=== PATIENT | female | born 1955 | race Caucasian/White ===

== ENCOUNTER → 2018-04-22 16:00 | Outpatient (CLI) | payer BC, SELFPAY ==
--- NOTE | 2018-04-22 16:26 | CT_ITS ---
STUDY: CT ABDOMEN AND PELVIS WITH CONTRAST REASON FOR EXAM: Female, 62 years old. Pain. Evaluate for diverticulitis. RADIATION DOSAGE (If Supplied By Facility): CTDIvol = ( 17.4 ) mGy, DLP = ( 1171.98 ) mGycm TECHNIQUE: Transaxial images were obtained from the dome of the diaphragm to the symphysis pubis without oral contrast. 100 ml of Isovue 300 contrast was administered. Sagittal and coronal images were reconstructed. Individualized dose optimization techniques were used for this CT. COMPARISON: None. FINDINGS: The visualized lung bases are clear. The visualized portions of the heart and pericardium are within normal limits. There are no calcified gallstones present. The liver is within normal limits. There are no suspicious hepatic lesions. The spleen is normal in size. The pancreas is within normal limits. The adrenal glands are within normal limits. There are no renal or ureteral stones. There is no hydronephrosis. There is a simple cyst in the left kidney. Normal visualized stomach. There is no bowel obstruction or inflammation. The appendix is visualized and appears normal. The aorta is normal in caliber. There is no abdominal or pelvic free air, free fluid, fluid collection or lymphadenopathy. There are no destructive osseous lesions. CT/Abdomen/Pelvis WITH Contrast IMPRESSION: No acute abdominal or pelvic pathology. Electronically Signed: Pierre Estevez, at 18:43 EST Tel , Service support ,
[2018-04-22 17:36] LABS: Absolute Lymphocyte Count 1.14 X10^3/ul (0.83-4.51); Absolute Neutrophil Count 5.2 X10^3/uL (2.0-7.7); Basophil# 0.04 X10^3/uL; Basophil% 0.6 % (0-1); Eosinophil# 0.12 X10^3/uL; Eosinophils% 1.7 % (0-5); Hematocrit 43.9 % (37-47); Hemoglobin 14.1 g/dl (12.0-15.0); Lymphocyte # 1.14 X10^3/ul (4.0); Lymphocyte % 16.2 % (19-41); Mean Corp Hgb Conc 32.1 g/gl (32-36); Mean Corpuscular Hgb 30.9 pg (27.0-32.0); Mean Corpuscular Volume 96.1 fL (81-99); Mean Platelet Vol. 10.7 fl (6.2-12.0); Monocyte% 7.1 % (0-10); Neutrophil # 5.23 X10^3/uL (2.7-7.7); Neutrophil % 74.1 % (47-70); POSITIVE COUNT NO; POSITIVE DIFFERENTIAL NO; Platelet Count 352 K/mm3 (150-450); RBC Distribution Width CV 12.8 % (11.6-14.6); RBC Distribution Width SD 43.5 fl (35.1-43.9); Red Blood Count 4.57 M/mm3 (4.2-5.4); White Blood Count 7.1 K/mm3 (4.4-11.0)
[2018-04-22 17:37] LABS: POSITIVE MORPHOLOGY NO
[2018-04-22 17:48] LABS: ALB/GLOB Ratio 1.1 RATIO (0.9-2.4); AST(SGOT) 21 U/L (15-37); Alanine Aminotransfer ALT/SGPT 26 U/L (13-56); Albumin, Serum 3.7 g/dL (3.2-5.0); Alkaline Phosphatase 86 U/L (45-117); Anion Gap 4 (5-15); BUN 11 mg/dL (7-18); BUN/Creat Ratio 13.2 RATIO (10-20); Calcium,Total 8.7 mg/dL (8.5-10.1); Chloride 105 mmol/L (98-107); Creatinine, Serum 0.83 mg/dL (0.55-1.02); EST Glomerular Filtration Rate 74 mL/min (>60); Est Glom Filt Rate - Afr Amer 89 mL/min (>60); Globulin 3.5 g/dL (2.2-4.2); Glucose 98 mg/dL (74-106); Potassium 3.5 mmol/L (3.5-5.1); Protein, Total 7.2 g/dL (6.4-8.2); Sodium Level 139 mmol/L (136-145)
== END ==
PROVIDERS: Family Provider Family Medicine; PCP Family Medicine; Referring Provider Family Medicine; Visit Provider Family Medicine
DX: K57.92 Diverticulitis of intestine, part unspecified, without perforation or abscess without bleeding (principal)
CPT/HCPCS: 36415; 74177; 80053; 85025; Q9967

== ENCOUNTER → 2018-05-05 11:06 | Outpatient (CLI) | payer BC, SELFPAY ==
[2018-05-05 12:07] LABS: Absolute Lymphocyte Count 1.02 X10^3/ul (0.83-4.51); Absolute Neutrophil Count 3.6 X10^3/uL (2.0-7.7); Basophil# 0.04 X10^3/uL; Basophil% 0.8 % (0-1); Eosinophil# 0.08 X10^3/uL; Eosinophils% 1.6 % (0-5); Hematocrit 46.4 % (37-47); Hemoglobin 14.6 g/dl (12.0-15.0); Lymphocyte # 1.02 X10^3/ul (4.0); Lymphocyte % 20.3 % (19-41); Mean Corp Hgb Conc 31.5 g/gl (32-36); Mean Corpuscular Volume 95.3 fL (81-99); Mean Platelet Vol. 10.6 fl (6.2-12.0); Monocyte# 0.28 X10^3/uL; Monocyte% 5.6 % (0-10); Neutrophil # 3.59 X10^3/uL (2.7-7.7); Neutrophil % 71.3 % (47-70); Platelet Count 324 K/mm3 (150-450); RBC Distribution Width CV 12.8 % (11.6-14.6); RBC Distribution Width SD 43.9 fl (35.1-43.9); Red Blood Count 4.87 M/mm3 (4.2-5.4)
[2018-05-05 12:08] LABS: POSITIVE COUNT NO; POSITIVE DIFFERENTIAL NO; POSITIVE MORPHOLOGY NO
[2018-05-05 12:44] LABS: Anion Gap 5 (5-15); BUN 16 mg/dL (7-18); BUN/Creat Ratio 19.3 RATIO (10-20); Calcium,Total 8.9 mg/dL (8.5-10.1); Chloride 107 mmol/L (98-107); Creatinine, Serum 0.83 mg/dL (0.55-1.02); EST Glomerular Filtration Rate 74 mL/min (>60); Est Glom Filt Rate - Afr Amer 89 mL/min (>60); Glucose 95 mg/dL (74-106); Potassium 4.1 mmol/L (3.5-5.1); Sodium Level 141 mmol/L (136-145); Thyroid Stim Hormone (TSH) 4.52 uIU/mL (0.358-3.74)
== END ==
PROVIDERS: Family Provider Family Medicine; PCP Family Medicine; Referring Provider Family Medicine; Visit Provider Family Medicine
DX: I10 Essential (primary) hypertension (principal); M19.90 Unspecified osteoarthritis, unspecified site; E07.9 Disorder of thyroid, unspecified
CPT/HCPCS: 36415; 80048; 84443; 85025

== ENCOUNTER 2019-03-22 15:00 | Outpatient (RCR) | payer BC, SELFPAY ==
--- NOTE | 2019-02-20 14:43 | HP.PTEVAL_ITS ---
Patient's Visit Information JACLYN PEREA is a 63 year old F referred to Physical Therapy by Navin Madrigal MD with a diagnosis of Left Shoulder Tendonitis. Date of Evaluation: 02/20/19 Physical Therapist: Eun Martin DPT - Visit Plan Frequency: 2x /Week Duration: 4 Weeks Plan: Focus on posture and scapular s/s. HEP given 02/20: scapular retractions, bilateral ER with OTB, corner stretch - Subjective Findings: Left shoulder pain- was doing a lot of heavy in July- flared it up and can't get rid of it. If she does a lot of work or carries a lot of things it hurts and hard to sleep at night. Worst: 4-5/10 in the last week Best:03/27. Agg: sleep on that side, lifting Eases: pain meds when she can't sleep at night (Meloxicam). Pain is located in the shoulder itself and radiates to the wrist. Describes the pain as throbbing. 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 No Neck pain- always has tight shoulder and carries her stress there. Right hand dominate. Worst: does not work outside of her home. Sleep: disturbed- hard to get comfortable and will wake her up. No BASSETT, blurred vision or dizziness. Feels the shoulder is getting better when she doesn't use it then it flares right back up. No x-rays or MRI of shoulder- no injection. PMHx: none Meds: does have a water pill but isn't taking it due to side effects - Objective Posture: FH, RS, increased kyphosis- challenged to correct with verbal and tactile cues- does not maintain. Gait: no deviation- good arm swing and trunk rotation. Palpatoin: tender along upper trap, medial border of the scapula, infra and supraspinatus along the scapula, bicpital groove- significant tightnesss in upper trap, levator and SCM. ROM: Cervical: WNL, Shoulder: WNL with pain at end range flexion. Elbow/Wrist/Finger Dexterity: WNL. Strength: Scap: poor-reports pulling sensation along pec with scapular retractions, Shoulder: Abd/Flexion: 4/5 with pain, IR/ER at neutral: 4+/5 Extn: 4+/5 Elbow: 4+/5, Wrist: 5/5, ,Commercial Or Institutional Cleaner: Left: 45, 50, 50 Right: 55,60,55. Special Test: Empty Can: negative, Impingment both Neer and Moya: positive - Goals Goal 1:: Patient will be I with HEP and progression Goal Time Frame: 4-6 Weeks Goal 2:: Patient will maintain proper posture t/o tx session to demo increased core s/s. Goal Time Frame: 4-6 Weeks Goal 3:: Patient will lift 5 cones overhead for 2 min with 0/10 pain Goal Time Frame: 4-6 Weeks Goal 4:: Patient will report no pain with ADL's. Goal Time Frame: 4-6 Weeks - Rehabilitation Potential Physical Therapy Diagnosis: Patient presents with hypomobility- she has decreased scap s/s and muscular endurance leading to poor posutre and increased pain with ADL's. Rehabilitation Potential: Good - Anticipated Interventions Patient/Client Instruction: Educate patient on: Benefits of Fitness Program Therapeutic Exercise to Include: Strength training, Endurance training, Body mechanics, Postural training, Scapular Strength/Stabilization For the Purpose of:: To improve muscle performance and motor function TENS: Yes Cryotherapy (ice pack, ice massage): Yes Thermo therapy (hot pack): Yes Ultrasound (thermal/non thermal): Yes Thank you for the opportunity to evaluate your patient. For Medicare and Medicare HMO plans, please review the plan of care and approve it. It will need to be FAXED BACK to us at [phone] for Medicare purposes. For Medicare only, by signing this I certify the plan of care. Please let me know if there are questions or concerns regarding this plan of care. Physician Signature: Date:
--- NOTE | 2019-03-22 15:25 | HP.PTDCSUM ---
HP - PT D/C Summary It has been my pleasure to treat JACLYN PEREA under orders from Navin Madrigal MD, for the diagnosis of Left Shoulder Tendonitis for a total of 7 visit(s). Discharge Date: Please see the following information for a summary of their discharge status. - Subjective Subjective: Patient reports that she is better - only time she has pain is when she rolling over onto it. - Pain Left Shoulder Pain Intensity (Out of 10): 0 - Overall Improvement % Improvement: 95 - Objective Objective/Function: Posture: good in sitting without a back rest Gait: no deviation- good arm swing and trunk rotation. Palpatoin: not tender to touch ROM: Cervical: WNL, Shoulder: WNL no pain at end range. Elbow/Wrist/Finger Dexterity: WNL. Strength: Scap: fair plus Shoulder: Abd/Flexion: 4+/5, IR/ER at neutral: 4+/5 Extn: 4+/5 Elbow: 4+/5, Wrist: 5/5, - Goals Goal 1:: Patient will be I with HEP and progression Goal Progress: Goal Met Goal 2:: Patient will maintain proper posture t/o tx session to demo increased core s/s. Goal Progress: Goal Met Goal 3:: Patient will lift 5 cones overhead for 2 min with 0/10 pain Goal Progress: Goal Met Goal 4:: Patient will report no pain with ADL's. Goal Progress: Goal Met - Plan Plan: Discharge to I HEP - D/C Information If there are questions or concerns regarding this patient's physical therapy, please feel free to call me at [phone]. Thank you for the referral of this patient. Sincerely, SHIRA SavageT
== END 2019-03-22 19:00 | disposition home or self-care (01) ==
LOC: PT 15:00
PROVIDERS: Family Provider Family Medicine; PCP Family Medicine; Referring Provider Family Medicine; Visit Provider Family Medicine
DX: M77.9 Enthesopathy, unspecified (principal)
CPT/HCPCS: 97110; 97161; 97164

== ENCOUNTER → 2019-07-18 10:02 | Outpatient (CLI) | payer BC, SELFPAY ==
[2019-07-18 13:18] LABS: AST(SGOT) 23 U/L (15-37); Alanine Aminotransfer ALT/SGPT 33 U/L (13-56); Albumin, Serum 3.4 g/dL (3.2-5.0); Alkaline Phosphatase 77 U/L (45-117); Anion Gap 7 (5-15); BUN 17 mg/dL (7-18); Chloride 106 mmol/L (98-107); Cholesterol 201 mg/dL (200); EST Glomerular Filtration Rate 67 mL/min (>60); Est Glom Filt Rate - Afr Amer 81 mL/min (>60); Globulin 3.4 g/dL (2.2-4.2); Glucose 98 mg/dL (74-106); High Density Lipoprotein 53 mg/dL; Potassium 3.8 mmol/L (3.5-5.1); Protein, Total 6.8 g/dL (6.4-8.2); Sodium Level 141 mmol/L (136-145); Thyroid Stim Hormone (TSH) 4.44 uIU/mL (0.358-3.74); Triglycerides 151 mg/dL; Very Low Density Lipoprotein 30 mg/dL (5-40)
== END ==
PROVIDERS: PCP Family Medicine; Referring Provider Family Medicine; Visit Provider Family Medicine
DX: I10 Essential (primary) hypertension (principal); E07.9 Disorder of thyroid, unspecified
CPT/HCPCS: 36415; 80053; 80061; 84443

== ENCOUNTER → 2019-12-04 10:11 | Outpatient (CLI) | payer MEDICARE, SELFPAY ==
[2019-12-04 13:23] LABS: Cholesterol 218 mg/dL (200); High Density Lipoprotein 59 mg/dL; Thyroid Stim Hormone (TSH) 1.84 uIU/mL (0.358-3.74); Triglycerides 182 mg/dL; Very Low Density Lipoprotein 36 mg/dL (5-40)
== END ==
PROVIDERS: PCP Family Medicine; Referring Provider Family Medicine; Visit Provider Family Medicine
DX: I10 Essential (primary) hypertension (principal); E03.9 Hypothyroidism, unspecified
CPT/HCPCS: 80061; 84443

== ENCOUNTER → 2020-06-20 10:36 | Outpatient (CLI) | payer MEDICARE, SELFPAY ==
[2020-06-20 12:49] LABS: Thyroid Stim Hormone (TSH) 5.27 uIU/mL (0.358-3.74)
== END ==
PROVIDERS: PCP Family Medicine; Referring Provider Family Medicine; Visit Provider Family Medicine
DX: L65.9 Nonscarring hair loss, unspecified (principal)
CPT/HCPCS: 36415; 84443

== ENCOUNTER → 2020-07-23 14:44 | Outpatient (CLI) | payer MEDICARE, SELFPAY ==
--- NOTE | 2020-07-23 14:46 | RAD_ITS ---
STUDY: X-RAY - LEFT FOOT CLINICAL: Female, 64 years old. PAIN TECHNIQUE: 3 view(s) of the foot. COMPARISON: None. FINDINGS: There is a plantar calcaneal spur. Normal visualized subtalar, talonavicular, calcaneocuboid, tarsal and tarsometatarsal articulations. Normal metatarsi. Normal metatarsophalangeal joint of the great toe. Normal tibial and fibular sesamoid bones. Normal interphalangeal joint of the great toe. Normal phalanges of the great toe. Normal second through fifth metatarsophalangeal joints. Normal interphalangeal joints and phalanges of the lesser toes. The soft tissue structures are unremarkable. RAD/Foot min 3 Views IMPRESSION: Plantar spur. Electronically Signed: Noe Ward MD at 15:24 EDT , Service support ,
== END ==
PROVIDERS: PCP Family Medicine; Referring Provider Family Medicine; Visit Provider Family Medicine
DX: M79.672 Pain in left foot (principal)
CPT/HCPCS: 73630

== ENCOUNTER → 2020-09-26 13:36 | Outpatient (CLI) | payer MEDICARE, SELFPAY ==
[2020-09-26 15:09] LABS: Absolute Lymphocyte Count 1.12 X10^3/uL (0.83-4.51); Absolute Neutrophil Count 3.9 X10^3/uL (2.0-7.7); Basophil# 0.05 X10^3/uL; Basophil% 0.9 % (0-1); Eosinophils% 1.8 % (0-5); Hemoglobin 13.6 g/dL (12.0-15.0); Lymphocyte # 1.12 X10^3/ul (0.83-4.51); Lymphocyte % 20.3 % (19-41); Mean Corp Hgb Conc 32.4 g/dL (32-36); Mean Corpuscular Hgb 30.6 pg (27.0-32.0); Mean Corpuscular Volume 94.4 fL (81-99); Mean Platelet Vol. 10.3 fl (6.2-12.0); Monocyte# 0.35 X10^3/uL; Monocyte% 6.3 % (0-10); NRBC Flagged by Analyzer 0 % (0-5); Neutrophil % 70.5 % (47-70); Platelet Count 314 K/mm3 (150-450); RBC Distribution Width CV 12.5 % (11.6-14.6); RBC Distribution Width SD 43.5 fl (35.1-43.9); Red Blood Count 4.45 M/mm3 (4.2-5.4); White Blood Count 5.5 K/mm3 (4.4-11.0)
[2020-09-26 15:38] LABS: ALB/GLOB Ratio 1.1 RATIO (0.9-2.4); AST(SGOT) 22 U/L (15-37); Alanine Aminotransfer ALT/SGPT 29 U/L (13-56); Albumin, Serum 3.7 g/dL (3.2-5.0); Alkaline Phosphatase 79 U/L (45-117); Anion Gap 8 (5-15); BUN 19 mg/dL (7-18); BUN/Creat Ratio 21.6 RATIO (10-20); Chloride 103 mmol/L (98-107); Cholesterol 228 mg/dL (200); Creatinine, Serum 0.88 mg/dL (0.55-1.02); EST Glomerular Filtration Rate 68 mL/min (>60); Est Glom Filt Rate - Afr Amer 83 mL/min (>60); Globulin 3.3 g/dL (2.2-4.2); Glucose 94 mg/dL (74-106); High Density Lipoprotein 56 mg/dL; Sodium Level 139 mmol/L (136-145); Thyroid Stim Hormone (TSH) 1.35 uIU/mL (0.358-3.74); Triglycerides 151 mg/dL; Very Low Density Lipoprotein 30 mg/dL (5-40)
== END ==
PROVIDERS: PCP Family Medicine; Referring Provider Family Medicine; Visit Provider Family Medicine
DX: I10 Essential (primary) hypertension (principal); E03.9 Hypothyroidism, unspecified
CPT/HCPCS: 36415; 80053; 80061; 84443; 85025

== ENCOUNTER → 2020-10-16 17:17 | Outpatient (CLI) | payer MEDICARE, SELFPAY | PROVIDERS: PCP Family Medicine; Visit Provider Family Medicine | DX: B34.9 Viral infection, unspecified (principal) | CPT/HCPCS: 87635; U0005; U0003 ==

== ENCOUNTER 2021-02-20 15:50 | Outpatient (CLI) | payer MEDICARE, SELFPAY | END 2021-02-20 23:59 | disposition short-term general hospital (02) | PROVIDERS: PCP Nurse Practitioner Family; Visit Provider Nurse Practitioner Family | DX: Z11.52 Encounter for screening for COVID-19 (principal) | CPT/HCPCS: 87635; U0003; U0005 ==

== ENCOUNTER 2021-04-04 14:09 | Outpatient (CLI) | payer MEDICARE, SELFPAY ==
[2021-04-04 17:41] LABS: Absolute Lymphocyte Count 0.89 X10^3/uL (0.83-4.51); Absolute Neutrophil Count 4.9 X10^3/uL (2.0-7.7); Basophil# 0.04 X10^3/uL; Basophil% 0.7 % (0-1); Eosinophil# 0.04 X10^3/uL; Eosinophils% 0.7 % (0-5); Hematocrit 43.9 % (37-47); Hemoglobin 14.4 g/dL (12.0-15.0); Lymphocyte # 0.89 X10^3/ul (0.83-4.51); Lymphocyte % 14.5 % (19-41); Mean Corp Hgb Conc 32.8 g/dL (32-36); Mean Corpuscular Hgb 30.9 pg (27.0-32.0); Mean Corpuscular Volume 94.2 fL (81-99); Mean Platelet Vol. 10.2 fl (6.2-12.0); Monocyte# 0.26 X10^3/uL; Monocyte% 4.2 % (0-10); NRBC Flagged by Analyzer 0 % (0-5); Neutrophil # 4.87 X10^3/uL (2.7-7.7); Neutrophil % 79.6 % (47-70); Platelet Count 323 K/mm3 (150-450); RBC Distribution Width CV 12.4 % (11.6-14.6); Red Blood Count 4.66 M/mm3 (4.2-5.4); White Blood Count 6.1 K/mm3 (4.4-11.0)
[2021-04-04 17:59] LABS: ALB/GLOB Ratio 0.9 RATIO (0.9-2.4); AST(SGOT) 23 U/L (15-37); Alanine Aminotransfer ALT/SGPT 35 U/L (13-56); Albumin, Serum 3.5 g/dL (3.2-5.0); Alkaline Phosphatase 75 U/L (45-117); Anion Gap 7 (5-15); BUN 14 mg/dL (7-18); BUN/Creat Ratio 16.5 RATIO (10-20); Calcium,Total 9.1 mg/dL (8.5-10.1); Chloride 108 mmol/L (98-107); Cholesterol 219 mg/dL (200); Creatinine, Serum 0.85 mg/dL (0.55-1.02); EST Glomerular Filtration Rate 71 mL/min (>60); Est Glom Filt Rate - Afr Amer 86 mL/min (>60); Globulin 3.8 g/dL (2.2-4.2); Glucose 101 mg/dL (74-106); High Density Lipoprotein 57 mg/dL; Potassium 3.9 mmol/L (3.5-5.1); Protein, Total 7.3 g/dL (6.4-8.2); Sodium Level 141 mmol/L (136-145); Thyroid Stim Hormone (TSH) 2.52 uIU/mL (0.358-3.74); Triglycerides 175 mg/dL; Very Low Density Lipoprotein 35 mg/dL (5-40)
== END 2021-04-04 23:59 | disposition home or self-care (01) ==
LOC: MTLAB 14:10
PROVIDERS: Registered Nurse; PCP Nurse Practitioner Family; Referring Provider Family Medicine; Visit Provider Family Medicine
DX: I10 Essential (primary) hypertension (principal); E03.9 Hypothyroidism, unspecified; E78.5 Hyperlipidemia, unspecified
CPT/HCPCS: 36415; 80053; 80061; 84443; 85025

== ENCOUNTER 2021-04-05 23:23 | Emergency (ER) | payer MEDICARE, SELFPAY ==
[2021-04-05 23:24] VITALS: BP 160/80; PULSE 87; RESP 18; TEMP 36; O2SAT 97; BMI 34.7
[2021-04-05 23:44] VITALS: BP 139/78; PULSE 78; O2SAT 93
[2021-04-05 23:47] VITALS: BP 148/80; PULSE 77; RESP 16; O2SAT 94
[2021-04-06] VITALS: BP 152/92; PULSE 69; RESP 14; O2SAT 96
[2021-04-06 00:18] VITALS: BP 131/77; PULSE 72
--- NOTE | 2021-04-06 00:34 | EX.ED.DYSGE1 ---
HPI History of Present Illness Chief Complaint: Hypertension Detail of Chief Complaint: Elevated blood pressure 170/106 Informant: patient and spouse/S.O. Onset/Context/Timing Onset: Today (Several readings) Context: Sudden Onset Timing: Intermittent (Past week) Quality: Cardiovascular Current Severity: Mild Maximum Severity: Moderate Worsened by: Possibly anxiety Relieved by: New medication was started Associated Symptoms Associated Symptoms: Patient complained of cold intolerance. Her TSH is being assessed to deter Narrative Narrative: Patient is a 65-year-old woman who presents because of elevated blood pressure. Denies headache, visual, ocular or auditory symptoms. She denies trouble with speech or swallowing. She denies cardiac respiratory symptoms. She denies GI symptoms. She denies paresthesia, anesthesia or motor weakness. Denies problems with balance or coordination. She denies history of stroke. Prior similar symptoms: Yes Recent Illness/Hospitalization: Yes (Elevated blood pressure and hypothyroidism) [facility] Medical History Hypothyroid Home Medications amlodipine 5 mg PO DAILY 04/05/21 [History Last Taken Unknown] losartan 50 mg PO DAILY 04/05/21 [History Last Taken Unknown] lorazepam [Ativan] 0.5 mg PO TID PRN #10 tab 04/06/21 [Rx Last Taken Unknown] Allergy/AdvReac Type Severity Reaction Status Date / Time No Known Allergies Allergy Verified 04/05/21 23:49 Social History (Updated 04/06/21 @ 00:[address] Norm Kraus MD) household members: spouse Smoking Status: Never smoker substance use type: does not use ROS ROS ED Constitutional Constitutional ED: Denies chills, fever(s), subjective, sweats or weight loss Eyes Eyes: Denies blurry vision, change in vision or diplopia ENT ENT ED: Reports other Details: No ringing in her ears or decreased hearing ; Denies ear pain, rhinorrhea or sore throat Cardiovascular Cardiovascular: Denies chest pain, orthopnea, palpitations, paroxysmal nocturnal dyspnea or racing heartbeat Respiratory/Chest Respiratory/Chest: Denies cough, dyspnea, dyspnea on exertion, orthopnea or paroxysmal nocturnal dyspnea Gastrointestinal Gastrointestinal: Denies abdominal pain, nausea or vomiting Musculoskeletal Musculoskeletal: Denies arthralgias, back pain, myalgias or neck pain Integumentary Denies rash Neurologic Neurologic: Denies headache(s), paresthesias or weakness Psychiatric Psychiatric: Reports anxiety Endocrine Endocrinology: Denies polydipsia, polyphagia or polyuria EXAM Physical Exam Const Vital Signs: 04/05/21 23:24 04/05/21 23:44 04/05/21 23:47 Temperature 96.8 F L Temperature Source Temporal Pulse Rate 87 78 77 Respiratory Rate 18 16 Respiratory Effort Respiratory Pattern Blood Pressure 160/80 H 139/78 H 148/80 H Blood Pressure Mean 106 98 102 Pulse Ox 97 93 94 Oxygen Delivery Method Room Air Room Air Room Air 04/05/21 23:51 04/06/21 00:00 04/06/21 00:18 Temperature Temperature Source Pulse Rate 69 72 Respiratory Rate 14 Respiratory Effort Normal Respiratory Pattern Normal Blood Pressure 152/92 H 131/77 H Blood Pressure Mean 112 95 Pulse Ox 96 Oxygen Delivery Method Room Air Positive well nourished, well developed and obese General Appearance ED: well developed and NAD; Negative for cyanotic, diaphoretic or pallor Nutritional Appearance: obese HEENT Reports moist mucous membranes HEENT Narrative: Nares patent. TMs normal. Negative for trauma or tenderness Neck no lymphadenopathy, supple and no JVD General: other There is no carotid bruit right or left side. Resp normal respiratory effort and clear to auscultation bilaterally Cardio regular rate, regular rhythm, S1 normal heart sound, S2 normal heart sound and no murmurs GI normal to inspection, nondistended, normoactive bowel sounds, non-tender and non-distended Auscultation: normoactive bowel sounds Palpation: soft Back/Spine no CVA tenderness Cervical Spine: Negative for cervical spine tenderness Thoracic Spine / Upper Back: Negative for thoracic spinal tenderness or paraspinal muscle tenderness Extremity normal to inspection Extremity Narrative: Radial and DP pulse palpable and symmetric. General Extremety ED: Negative for edema General Extremity: Negative for edema Neuro oriented x3, CN's II-XII intact bilaterally and no sensory deficits noted Sensorium / Orientation: alert Motor Exam: strength 5/5 throughout Psych mental status grossly normal Mood & Affect: anxious Skin no rashes or lesions noted and no wounds General Skin Exam: Negative for jaundice or pallor MDM MDM MDM Narrative Medical decision making narrative: Patient has elevated blood pressure but is asymptomatic. Plan is repeat blood pressure every 15 minutes for an hour. Most recent blood pressure is 131/77 without initiation of therapy. Patient asked if she could be given something for anxiety. She was prescribed Ativan. Discharge Plan Triage Chief Complaint: Hypertension ED Provider: Norm Kraus Dx/Rx/DC Orders Clinical Impression: HTN (hypertension), Anxiety Instructions: Understanding Anxiety Disorders, ED Hypertension, Established Prescriptions: New lorazepam [Ativan] 0.5 mg tablet 0.5 mg PO TID PRN (Reason: anxiety) Qty: 10 RF: 0 No Action losartan 50 mg tablet 50 mg PO DAILY RF: 0 amlodipine 5 mg tablet 5 mg PO DAILY RF: 0 Primary Care Provider: Shan Nguyen Referrals: Shan Nguyen [Primary Care Provider] - 1-2 Weeks Disposition Disposition: Home, Self Care
[2021-04-06 00:41] VITALS: BP 136/69; PULSE 63; RESP 16; O2SAT 96
[2021-04-06 00:48] VITALS: BP 136/69; PULSE 63; RESP 18; O2SAT 96
== END 2021-04-06 00:52 | disposition home or self-care (01) ==
LOC: ED 04-06 00:45
PROVIDERS: Emergency Provider Emergency Medicine; PCP Family Medicine; Visit Provider Emergency Medicine
DX: I10 Essential (primary) hypertension (principal); F41.9 Anxiety disorder, unspecified; E66.9 Obesity, unspecified; Z79.899 Other long term (current) drug therapy
CPT/HCPCS: 99283

== ENCOUNTER 2021-04-10 13:13 | Outpatient (CLI) | payer MEDICARE, SELFPAY ==
--- NOTE | 2021-04-10 13:15 | BI_ITS ---
MAMMOGRAPHY - BILATERAL SCREENING REASON FOR EXAM: Female, 65 years old. Routine annual screening examination. PERTINENT HISTORY: Sister with breast cancer. Grandmother with breast cancer. Remote right stereotactic breast biopsy. TECHNIQUE: Digital bilateral breast christo (3D mammographic acquisition) in the CC and MLO projections. 2-D mediolateral oblique (MLO) and craniocaudad (CC) views of both breasts were obtained. CAD: Full Field Digital Mammography with Computer Added Detection was performed. COMPARISON: Comparison is made with prior examination dated 01/25/2017 and 12/25/2013. FINDINGS: Breast Composition: The breasts are heterogeneously dense, which may obscure small masses. There are no dominant masses or suspicious calcifications. No other significant abnormalities are identified. There has been no significant change since the prior study. BI/SCRN MAMM (CAD)W/CHRISTO BILAT IMPRESSION: Stable bilateral screening mammogram. Yearly follow-up mammogram recommended. (A) ASSESSMENT CATEGORY: BIRADS Category 1: Negative. A letter regarding these results will be sent to the patient by the facility within 30 days. Approximately 10% of breast cancers are not detected by mammography. A normal mammogram should not delay biopsy of a clinically suspicious abnormality. [id number] Electronically Signed: Noe Ward MD at 14:39 EST ,
--- NOTE | 2021-04-10 13:16 | BD_ITS ---
STUDY: DUAL ENERGY X-RAY ABSORPTIOMETRY / DXA REASON FOR EXAM: Female, 65 years old. 733.00OsteoporosisBONE DENSITY REASON FOR EXAM TECHNIQUE: Bone Mineral Density (BMD) measurements of lumbar spine and bilateral hips were obtained. COMPARISON: None. FINDINGS: Lumbar Spine (L1-L4): g/cm2 (0.988) / T-score (-0.5) / Z-score (1.3) Findings are suggestive of normal bone density with a low fracture risk. Left Femur Total: g/cm2 (0.945) / T-score (0.0) / Z-score (1.3) Left Femoral Neck: g/cm2 (0.753) / T-score (-0.9) / Z-score (0.7) Right Femur Total: g/cm2 (0.956) / T-score (0.1) / Z-score (1.4) Right Femoral Neck: g/cm2 (0.730) / T-score (-1.1) / Z-score (0.5) BD/Dexa Bone Density Study IMPRESSION: The patient is considered osteopenic as outlined below according to World Mack Organization (WHO) criteria with a low fracture risk. Reference Information: The T-score is the number of standard deviations above or below the standard which is normal for young adults at their peak bone mineral density. The World Health Organization (WHO) interprets the T-scores as follows: Above -1 Normal bone density Between -1 and -2.5 Osteopenia Equal to / or below -2.5 Osteoporosis As a practical clinical guideline, osteopenia may be graded as follows: Mild -1 through -1.5 Moderate -1.6 through -2.0 Severe -2.1 through -2.4 The Z-score is the number of standard deviations above or below age-matched controls. A Z-score of less than -1.5 would be considered abnormal. References: 1. NIH Osteoporosis and Related Bone Diseases www osteo.org 2. International Society for Clinical Densitometry www iscd.org 3. National Osteoporosis Foundation www nof.org Electronically Signed: Noe Ward MD at 8:24 EST ,
== END 2021-04-10 23:59 | disposition home or self-care (01) ==
PROVIDERS: PCP Family Medicine; Visit Provider Registered Nurse
DX: Z78.0 Asymptomatic menopausal state (principal); Z12.31 Encounter for screening mammogram for malignant neoplasm of breast
CPT/HCPCS: 77063; 77067; 77080

== ENCOUNTER → 2022-04-23 | Outpatient (CLI) | payer MEDICARE, OTHER, SELFPAY ==
[2022-04-23 12:42] LABS: AST(SGOT) 15 U/L (15-37); Albumin, Serum 3.5 g/dL (3.2-5.0); BUN 20 mg/dL (7-18); BUN/Creat Ratio 22.1 RATIO (10-20); Calcium,Total 9.3 mg/dL (8.5-10.1); EST Glomerular Filtration Rate 66 mL/min (>60); Est Glom Filt Rate - Afr Amer 80 mL/min (>60); Globulin 3.5 g/dL (2.2-4.2); Glucose 103 mg/dL (74-106)
[2022-04-23 12:43] LABS: Alanine Aminotransfer ALT/SGPT 21 U/L (13-56); Alkaline Phosphatase 75 U/L (45-117); Anion Gap 4 (5-15); Chloride 107 mmol/L (98-107); Cholesterol 229 mg/dL (200); High Density Lipoprotein 52 mg/dL; Potassium 3.8 mmol/L (3.5-5.1); Sodium Level 140 mmol/L (136-145); Triglycerides 168 mg/dL; Very Low Density Lipoprotein 34 mg/dL (5-40)
== END | disposition home or self-care (01) ==
LOC: MTLAB 09:58
PROVIDERS: PCP Family Medicine; Referring Provider Family Medicine; Visit Provider Family Medicine
DX: I10 Essential (primary) hypertension (principal); E78.5 Hyperlipidemia, unspecified
CPT/HCPCS: 36415; 80053; 80061

== ENCOUNTER → 2023-03-08 | Outpatient (CLI) | payer MEDICARE, OTHER, SELFPAY ==
--- NOTE | 2023-03-08 14:06 | CT_ITS ---
STUDY: CT ABDOMEN AND PELVIS WITH CONTRAST REASON FOR EXAM: Female, 67 years old. Right lower quadrant pain. RADIATION DOSAGE (If Supplied By Facility): CTDIvol = ( 17.37 ) mGy, DLP = ( 1096.77 ) mGycm TECHNIQUE: Transaxial images were obtained through the abdomen and pelvis with oral contrast. 100 ml of Isovue-370 contrast was administered. Sagittal and coronal images were reconstructed. Individualized dose optimization techniques were used for this CT. COMPARISON: Prior study dated: 04/22/18 FINDINGS: LOWER THORAX: The visualized lung bases are clear. The visualized portions of the heart and pericardium are within normal limits. GALLBLADDER / BILE DUCTS: There are no calcified gallstones present. There is no intrahepatic biliary duct dilatation. The common bile duct is normal in caliber. There are no calcified ductal stones. LIVER: The liver is within normal limits. There are no suspicious hepatic lesions. SPLEEN: The spleen is normal in size. PANCREAS: The pancreas is within normal limits. ADRENAL GLANDS: The adrenal glands are within normal limits. KIDNEYS / BLADDER: There are no renal or ureteral stones. There is no hydronephrosis. There are no focal renal lesions. The urinary bladder is partially distended and appears grossly unremarkable. STOMACH / BOWEL: Normal visualized stomach. There is no bowel obstruction. There are inflammatory changes in the pelvis adjacent to diverticula in the sigmoid colon. This is consistent with acute sigmoid diverticulitis. The appendix is visualized and appears normal. PERITONEUM/RETROPERITONEUM: There is no abdominal or pelvic free air, free fluid or fluid collection. There is no abnormal soft tissue mass identified. There is no abdominal or pelvic lymphadenopathy. VESSELS: There are atherosclerotic calcifications noted in the aorta. The aorta is normal in caliber. The IVC is unremarkable. BONES: There are no destructive osseous lesions. SOFT TISSUES: The visualized soft tissues are within normal limits. CT/Abdomen/Pelvis WITH Contrast IMPRESSION: Acute sigmoid diverticulitis. No free air, free fluid or fluid collection. Electronically Signed: Pierre Estevez MD at 16:38 EST ,
--- OUTSIDE RECORDS SUMMARY | 2023-03-08 14:32 | XMS RPT_ITS | CCD ---
Author Name Unknown Address [facility] [place] [address] Organization [facility] Care Team Providers Care Mrb Engineer Name Role Phone FERMIN WOODS Admitting Unavailable FERMIN WOODS Attending Unavailable FERMIN WOODS Primary Care Unavailable FERMIN WOODS Admitting Unavailable FERMIN WOODS Attending Unavailable FERMIN WOODS Primary Care Unavailable SHAN BATISTA Consulting Unavailable PROVIDER, UNKNOWN Consulting Unavailable PROVIDER, UNKNOWN Consulting Unavailable Allergies Allergy Classification Reported Allergen(s) Allergy Type Date of Onset Reaction(s) Facility (1 source) Citalopram Drug Allergy [facility] Repository (1 source) Egg Drug allergy (disorder) [facility] Rep[facility] (1 source) Lisinopril Drug Allergy [facility] Rep[facility] Problems Problem Classification Problem Date Documented Da te Episodic/Chronic Other skin disorders (3 sources) Rash and other nonspecific skin eruption; Translations: [Rash and other nonspecific skin eruption] Onset: 04-21-2020 Episodic Results Test Name Value Interpretation Reference Range Facil ity Encounters Encounter Date Encounter Type Care Provider Facility Start: 04-03-2021 End: 04-03-2021 Emergency department patient visit FERMIN Aiken [facility] Start: 04-21-2020 End: 04-21-2020 Emergency department patient visit FERMIN Aiken [facility] Procedures Date Procedure Procedure Detail Performing Clinician Start: 04-03-2021 Urinalysis FERMIN LAMBERTS Payers Date Payer Category Payer Unknown [id number] 1955 Unknown [id number] Medicare [id number] Medicare [id number] Summary Purpose Family History No Family History Records Found Advance Directives No Advanced Directives Records Found Additional Source Comments INFORMATION SOURCE (unrecogn ized section and content) FOR RECORDS PERTAINING TO PATIENTS WHO ARE OR HAVE BEEN ENROLLED IN A CHEMICAL DEPENDENCY/SUBSTANCEABUSE PROGRAM, SOME INFORMATION MAY BE OMITTED. This clinical summary was aggregated from multiple sources. Caution should be exercised in using it in the provision of clinical care. This summary normalizes information from multiple sources, and as a consequence, information in this document may materially change the coding, format and clinical context of patient data. In addition, data may be omitted in some cases. CLINICAL DECISIONS SHOULD BE BASED ON THE PRIMARY CLINICAL RECORDS. [facility]. provides no warranty or guarantee of the accuracy or completeness of information in this document.
[2023-03-08 16:33] LABS: CREATININE FINGERSTICK < 1.0 mg/dL (0.55-1.02)
== END | disposition home or self-care (01) ==
LOC: CT 14:04
PROVIDERS: PCP Family Medicine; Referring Provider Nurse Practitioner Family; Visit Provider Nurse Practitioner Family
DX: R10.31 Right lower quadrant pain (principal)
CPT/HCPCS: 74177; Q9967

== ENCOUNTER 2023-09-30 16:03 | Outpatient (CLI) | payer MEDICARE, OTHER, SELFPAY ==
[2023-09-30 18:04] LABS: Absolute Lymphocyte Count 1.16 X10^3/uL (0.83-4.51); Absolute Neutrophil Count 5.1 X10^3/uL (2.0-7.7); Basophil# 0.05 X10^3/uL; Basophil% 0.7 % (0-1); Eosinophil# 0.09 X10^3/uL; Eosinophils% 1.3 % (0-5); Hematocrit 44.1 % (37-47); Hemoglobin 13.9 g/dL (12.0-15.0); Lymphocyte # 1.16 X10^3/ul (0.83-4.51); Lymphocyte % 16.8 % (19-41); Mean Corp Hgb Conc 31.5 g/dL (32-36); Mean Platelet Vol. 10.2 fl (6.2-12.0); Monocyte# 0.49 X10^3/uL; Monocyte% 7.1 % (0-10); NRBC Flagged by Analyzer 0 % (0-5); Neutrophil # 5.09 X10^3/uL (2.7-7.7); Neutrophil % 73.7 % (47-70); Platelet Count 342 K/mm3 (150-450); RBC Distribution Width CV 12.3 % (11.6-14.6); RBC Distribution Width SD 42.8 fl (35.1-43.9); Red Blood Count 4.64 M/mm3 (4.2-5.4); White Blood Count 6.9 K/mm3 (4.4-11.0)
[2023-09-30 18:21] LABS: Vitamin D,25 Hydroxy 32.9 ng/mL
[2023-09-30 18:44] LABS: ALB/GLOB Ratio 0.9 RATIO (0.9-2.4); AST(SGOT) 67 U/L (15-37); Alanine Aminotransfer ALT/SGPT 99 U/L (13-56); Albumin, Serum 3.4 g/dL (3.2-5.0); Alkaline Phosphatase 111 U/L (45-117); Anion Gap 7 (5-15); BUN 15 mg/dL (7-18); BUN/Creat Ratio 16.8 RATIO (10-20); Calcium,Total 9.1 mg/dL (8.5-10.1); Chloride 106 mmol/L (98-107); Cholesterol 199 mg/dL (200); Creatinine, Serum 0.89 mg/dL (0.55-1.02); EST Glomerular Filtration Rate 67 mL/min (>60); Est Glom Filt Rate - Afr Amer 81 mL/min (>60); Globulin 3.9 g/dL (2.2-4.2); Glucose 92 mg/dL (74-106); High Density Lipoprotein 66 mg/dL; Protein, Total 7.3 g/dL (6.4-8.2); Sodium Level 140 mmol/L (136-145); Triglycerides 137 mg/dL; Very Low Density Lipoprotein 27 mg/dL (5-40)
== END 2023-09-30 23:59 | disposition home or self-care (01) ==
LOC: MFPLAB 16:05
PROVIDERS: PCP Family Medicine; Visit Provider Family Medicine
DX: I10 Essential (primary) hypertension (principal); E03.8 Other specified hypothyroidism
CPT/HCPCS: 36415; 80053; 80061; 82306; 84443; 85025

== ENCOUNTER → 2024-04-13 | Outpatient (CLI) | payer MEDICARE, OTHER, SELFPAY ==
[2024-04-13 18:38] LABS: Cholesterol 226 mg/dL (<=200); High Density Lipoprotein 63 mg/dL; Low Density Lipoprotein Calc. 129 mg/dL; Triglycerides 172 mg/dL; Very Low Density Lipoprotein 34 mg/dL (5-40); cholesterol:hdl ratio screen 3.59
[2024-04-13 18:46] LABS: Hemoglobin A1c 5.5 % (<=5.6)
== END | disposition home or self-care (01) ==
LOC: MFPLAB 14:48
PROVIDERS: PCP Family Medicine; Referring Provider Family Medicine; Visit Provider Family Medicine
DX: E03.8 Other specified hypothyroidism (principal); Z13.220 Encounter for screening for lipoid disorders; Z13.1 Encounter for screening for diabetes mellitus
CPT/HCPCS: 36415; 80061; 83036; 84443

== ENCOUNTER 2024-05-09 12:00 | Emergency (ER) | payer MEDICARE, OTHER, SELFPAY ==
[2024-05-09 12:01] VITALS: BP 159/93; PULSE 71; RESP 18; TEMP 37.2; O2SAT 96; BMI 37.0
[2024-05-09 12:04] VITALS: BP 159/93; PULSE 71; RESP 17; TEMP 37.2; O2SAT 96
[2024-05-09 12:51] LABS: Absolute Lymphocyte Count 0.51 X10^3/uL (0.83-4.51); Absolute Neutrophil Count 3.4 X10^3/uL (2.0-7.7); Basophil# 0.02 X10^3/uL; Basophil% 0.5 % (0-1); Hematocrit 47.7 % (37-47); Hemoglobin 16.2 g/dL (12.0-15.0); Lymphocyte # 0.51 X10^3/ul (0.83-4.51); Lymphocyte % 11.9 % (19-41); Mean Corpuscular Hgb 30.7 pg (27.0-32.0); Mean Corpuscular Volume 90.5 fL (81-99); Mean Platelet Vol. 10.2 fl (6.2-12.0); Monocyte# 0.32 X10^3/uL; Monocyte% 7.5 % (0-10); NRBC Flagged by Analyzer 0 % (0-5); Neutrophil # 3.41 X10^3/uL (2.7-7.7); Neutrophil % 79.9 % (47-70); POSITIVE DIFFERENTIAL YES; Platelet Count 195 K/mm3 (150-450); RBC Distribution Width CV 12.4 % (11.6-14.6); RBC Distribution Width SD 41.2 fl (35.1-43.9); Red Blood Count 5.27 M/mm3 (4.2-5.4); White Blood Count 4.3 K/mm3 (4.4-11.0)
[2024-05-09] MEDS: 0.9% Normal Saline (1000mL) 1,000 ML 1000 ML IV (12:53)
[2024-05-09] MEDS: Oxymetazoline 0.05% 1 SPRAY SPRAY.BTL 2 SPRAY NASAL (12:54)
--- NOTE | 2024-05-09 13:03 | EDS_ITS ---
HPI History of Present Illness Chief Complaint: Weakness Informant: patient and spouse/S.O. Narrative Narrative: 68-year-old female history of hypertension presenting to the emergency room with a chief complaint of feeling ill. Patient states she has been sick for 11 days. On Wednesday she was diagnosed with COVID-19. She was told that she was not better to return to her primary care doctor's office. She went back today. She states she cannot breathe. By this when I inquired directly she states she cannot breathe through her nose. She states that she is having a hard time laying flat. She states that when she does fall asleep she wakes up gasping. She denies any chest pain. She notes diarrhea. She notes she is urinating less. She had an EKG performed in the office that shows a normal sinus rhythm and a copy of that EKG was sent with her as well as documentation of her COVID- 19 positive status. She notes sweats but no fever. No significant cough. [facility] Medical History Hypothyroid Home Medications ?Medication ?Instructions ?Recorded ?Last Taken ?Type amlodipine 5 mg tablet 5 mg PO DAILY 04/05/21 Unkno wn History losartan 50 mg tablet 50 mg PO DAILY 04/05/21 Unkn own History lorazepam 0.5 mg tablet (Ativan) 0.5 mg PO TID PRN anx iety #10 tabs 04/06/21 Unknown Rx Allergy/AdvReac Type Severity Reaction Status Date / Time No Known Allergies Allergy Verified 04/05/21 23:49 Social History household members: spouse Smoking Status: Never smoker substance use type: does not use ROS ROS ED Constitutional Constitutional ED: Reports sweats; Denies chills, fever(s) or weight loss Eyes Eyes: Denies change in vision or diplopia ENT ENT ED: Reports rhinorrhea and other Details: Nasal congestion ; Denies ear pain or sore throat Cardiovascular Cardiovascular: Denies chest pain, orthopnea, palpitations or racing heartbeat Respiratory/Chest Respiratory/Chest: Reports dyspnea; Denies cough or orthopnea Gastrointestinal Gastrointestinal: Reports diarrhea; Denies abdominal pain, nausea or vomiting Genitourinary Genitourinary ED: Denies dysuria, hematuria or urinary frequency Musculoskeletal Musculoskeletal: Denies arthralgias or myalgias Integumentary Denies abscess or rash Neurologic Neurologic: Denies headache(s) or weakness Psychiatric Psychiatric: Denies anxiety, depression, suicidal ideation or suicidal thoughts Endocrine Endocrinology: Denies polydipsia, polyphagia or polyuria Allergic/Immunologic Allergic/Immunologic ED: Denies mouth swelling, tongue swelling or urticaria EXAM Physical Exam Narrative Exam Narrative: Patient is sitting up in the bed in no apparent distress. She is 96% on room air. Const Vital Signs: 05/09/24 12:01 05/09/24 12:04 05/09/24 12:05 Temperature 99 F 99 F Temperature Source Oral Oral Pulse Rate 71 71 Pulse Rate [Lying] Pulse Rate [Sitting (for 1 minute prior to obtaining)] Respiratory Rate 18 17 Respiratory Effort Normal Respiratory Pattern Normal Blood Pressure 159/93 H 159/93 H Blood Pressure [Lying] Blood Pressure [Sitting (for 1 minute prior to obtaining)] Blood Pressure Mean 115 115 Blood Pressure Mean [Lying] Blood Pressure Mean [Sitting (for 1 minute prior to obtaining)] Pulse Ox 96 96 Oxygen Delivery Method Room Air Room Air 05/09/24 13:39 05/09/24 14:00 Temperature Temperature Source Pulse Rate 64 Pulse Rate [Lying] 77 Pulse Rate [Sitting (for 1 minute prior to obtaining)] 70 Respiratory Rate 12 Respiratory Effort Respiratory Pattern Blood Pressure 177/68 H Blood Pressure [Lying] 148/78 H Blood Pressure [Sitting (for 1 minute prior to obtaining)] 140/87 H Blood Pressure Mean 99 Blood Pressure Mean [Lying] 101 Blood Pressure Mean [Sitting (for 1 minute prior to obtaining)] 104 Pulse Ox 97 Oxygen Delivery Method Positive well nourished and well developed General Appearance ED: well developed HEENT Reports normocephalic, head/scalp atraumatic and moist mucous membranes HEENT Narrative: Turbinate edema is noted Eyes PERRL and EOMs intact bilaterally Neck no lymphadenopathy, supple and no JVD Resp normal respiratory effort and clear to auscultation bilaterally Cardio regular rate, regular rhythm and no murmurs GI normal to inspection, nondistended, normoactive bowel sounds and non-tender Palpation: soft Back/Spine no CVA tenderness and normal ROM Extremity normal to inspection General Extremety ED: Negative for edema General Extremity: Negative for edema Neuro oriented x3 and CN's II-XII intact bilaterally Sensorium / Orientation: alert Motor Exam: strength 5/5 throughout Psych mental status grossly normal Mood & Affect: Negative for depressed or tearful Skin no rashes or lesions noted and no wounds MDM MDM MDM Narrative Medical decision making narrative: Differential diagnosis includes but not limited to pneumonia pulmonary embolism dehydration electrolyte abnormalities UTI sepsis My independent interpretation of the chest x-ray is no acute process. Patient is EKG from the office was reviewed and I did not feel that it was necessary to repeat it. She has been in normal sinus rhythm on the monitor. She said no hypoxia. White count is 4.3 with a hemoglobin of 16.2 and platelet count of 195. Creatinine normal 0.86 with a BUN of 12 CO2 is 23. Urinalysis 5-10 whites 1+ bacteria negative nitrates 150 ketones. Patient received IV fluids as well as Afrin nasal spray. CTA of the chest was obtained. I do not see obvious large pneumonia or pleural effusion. Her BNP is 44 troponin is 11. She ambulates here in the department without difficulty and without hypoxia. I believe the patient can be discharged home with continued supportive care would recommend continued hydration return if worsening or concerns History & Record Review Discussion w/independent historian: Patient and Significant other Lab Data Attestation: I reviewed the patient's lab results. Labs: Laboratory Results - last 24 hr 05/09/24 05/09/24 12:46 12:58 WBC 4.3 L RBC 5.27 Hgb 16.2 H Hct 47.7 H MCV 90.5 MCH 30.7 MCHC 34.0 RDW Std Deviation 41.2 RDW Coeff of Luzma 12.4 Plt Count 195 MPV 10.2 Immature Gran % (Auto) 0.200 Neut % (Auto) 79.9 H Lymph % (Auto) 11.9 L Ray % (Auto) 7.5 Eos % (Auto) 0.0 Baso % (Auto) 0.5 Absolute Neuts (auto) 3.4 Absolute Lymphs (auto) 0.51 L Nucleated RBC % 0 Sodium 140 Potassium 3.7 Chloride 103 Carbon Dioxide 23.4 Anion Gap 14 BUN 12 Creatinine 0.86 Estim Creat Clear Calc 65.16 Est GFR (MDRD) Non-Af 73 BUN/Creatinine Ratio 14.2 Glucose 110 H Calcium 9.3 Total Bilirubin 0.41 Direct Bilirubin 0.21 AST 63 H ALT 84 H Alkaline Phosphatase 89 Troponin T High Sens 11 NT pro BNP II 44 Total Protein 7.1 Albumin 4.2 Globulin 2.9 Urine Color Yellow Urine Clarity Sl. Cloudy Urine pH 6.0 Ur Specific [place] 1.010 Urine Protein 30 H Urine Glucose (UA) Normal Urine Ketones 150 A* Urine Occult Blood 10 H Urine Nitrite Negative Urine Bilirubin Negative Urine Urobilinogen 1 H Ur Leukocyte Esterase 25 H Urine RBC 0-5 SEEN Urine WBC 5-10 SEEN Ur Squamous Epith Cells 0-5 SEEN Urine Bacteria 1+ Urine Mucus RARE Radiography Diagnostic Testing: Clinical Impression(s) from Imaging Studies Chest X-Ray 05/09/24 13:20 IMPRESSION: Pulmonary venous congestion. Reading Location: [facility] Chest CTA 05/09/24 13:40 IMPRESSION: 1. No pulmonary embolism is identified. Some of the distal pulmonary arteries cannot be evaluated due to suboptimal opacification. 2. Scattered mediastinal lymph nodes some of which are upper limits of normal in size and are most likely reactive lymph nodes. 3. Ground-glass nodular opacity of the right lung could be secondary to infectious or inflammatory process. Repeat CT in 3-6 months is recommended. Reading Location: [facility] Discharge Plan Triage Chief Complaint: Weakness ED Provider: Mark Ma Dx/Rx/DC Orders Clinical Impression: COVID-19, Acute dyspnea, Acute dehydration Instructions: Dehydration Prescriptions: No Action losartan 50 mg tablet 50 mg PO DAILY amlodipine 5 mg tablet 5 mg PO DAILY lorazepam [Ativan] 0.5 mg tablet 0.5 mg PO TID PRN (Reason: anxiety) Qty: 10 0RF Primary Care Provider: Veronica Tobar Referrals: Veronica Tobar MD [Primary Care Provider] - As Needed Activity Restrictions/Additional Instructions: You may try some Afrin nasal spray but please do not use it longer than 3 to 4 days. Also this may increase your blood pressure temporarily. Do try to eat some protein and drink plenty of fluids to stay hydrated Print Language: Guatemalan Disposition Disposition: Home, Self Care
[2024-05-09 13:15] LABS: AST(SGOT) 63 U/L (<=31); Alanine Aminotransfer ALT/SGPT 84 U/L (<=34); Albumin, Serum 4.2 g/dL (3.4-4.8); Alkaline Phosphatase 89 U/L (35-104); Anion Gap 14 (5-15); BUN 12 mg/dL (4-19); BUN/Creat Ratio 14.2 RATIO (10-20); Bilirubin, Direct 0.21 mg/dL (0.00-0.30); Calcium,Total 9.3 mg/dL (7.6-11.0); Carbon Dioxide 23.4 mmol/L (21.0-32.0); Chloride 103 mmol/L (98-108); Creatinine, Serum 0.86 mg/dL (0.70-1.20); EST Glomerular Filtration Rate 73 (>60); Estimated Creatinine Clearance 65.16 ml/min (50-250); Globulin 2.9 g/dL (2.2-4.2); Glucose 110 mg/dL (70-99); Potassium 3.7 mmol/L (3.3-5.1); Protein, Total 7.1 g/dL (5.9-8.4); Sodium Level 140 mmol/L (133-145); Total Bilirubin 0.41 mg/dL (0.00-1.30)
[2024-05-09 13:15] LABS: Color, Urine Yellow (Yellow); Glucose, Dipstick Normal (Normal); Leukocyte Esterase-Dipstick 25 /ul (Negative); Nitrite-Dipstick Negative (Negative); Occult Blood-Urine 10 /ul (Negative); Protein-Dipstick 30 mg/dl (Negative); Urine Bilirubin Dipstick Negative (Negative); Urine Clarity Sl. Cloudy (Clear); Urine Urobilinogen 1 mg/dl (Normal)
[2024-05-09 13:17] LABS: Ketone-Dipstick 150 mg/dl (Negative)
[2024-05-09 13:20] LABS: White Blood Cells 5-10 SEEN /hpf (0-5)
--- NOTE | 2024-05-09 13:20 | RAD_ITS ---
EXAM: XR Chest, 1 View CLINICAL INDICATION: DYSPNEA TECHNIQUE: Frontal view of the chest. COMPARISON: No relevant prior studies available. FINDINGS: LUNGS AND PLEURAL SPACES: Pulmonary venous congestion. No consolidation. No pneumothorax. HEART: Unremarkable. No cardiomegaly. MEDIASTINUM: Unremarkable. Normal mediastinal contour. BONES/JOINTS: Unremarkable. No acute fracture. RAD/Chest 1 View (Portable) IMPRESSION: Pulmonary venous congestion. Reading [facility]
[2024-05-09 13:21] LABS: Bacteria 1+ /hpf (None Seen); Mucous, Urine RARE /hpf (<or=2+); Red Blood Cells-Urine 0-5 SEEN /hpf (0-5); Squamous Epithelial Cells - UA 0-5 SEEN /hpf (5-10)
[2024-05-09 13:39] VITALS: BP 140/87; BP 148/78; PULSE 70; PULSE 77
--- NOTE | 2024-05-09 13:40 | CT_ITS ---
EXAM: CT Angiography Chest Without and With Intravenous Contrast CLINICAL INDICATION: PULMONARY EMBOLISM TECHNIQUE: Axial computed tomographic angiography images of the chest without and with intravenous contrast. This CT exam was performed using one or more of the following dose reduction techniques: automated exposure control, adjustment of the mA and/or kV according to patient size, and/or use of iterative reconstruction technique. MIP reconstructed images were created and reviewed. COMPARISON: No relevant prior studies available. FINDINGS: LIMITATIONS: Suboptimal opacification of the pulmonary arteries. PULMONARY ARTERIES: No pulmonary embolism is identified. Some of the distal pulmonary arteries cannot be evaluated due to suboptimal opacification. AORTA: No acute findings. No thoracic aortic aneurysm. LUNGS AND PLEURAL SPACES: Bilateral apical scarring. Lung emphysema/COPD. 3 mm ground-glass nodule of the right upper lobe. Scattered 4 mm ground-glass nodule of the right lower lobe. No consolidation. No significant effusion. No pneumothorax. HEART: Unremarkable. No cardiomegaly. No significant pericardial effusion. No evidence of RV dysfunction. MEDIASTINUM: Scattered mediastinal lymph nodes some of which are upper limits of normal in size and are most likely reactive lymph nodes. BONES/JOINTS: No acute fracture. No dislocation. SOFT TISSUES: Unremarkable. LYMPH NODES: See above. CT/CTA Chest W/WO Contrast IMPRESSION: 1. No pulmonary embolism is identified. Some of the distal pulmonary arteries cannot be evaluated due to suboptimal opacification. 2. Scattered mediastinal lymph nodes some of which are upper limits of normal in size and are most likely reactive lymph nodes. 3. Ground-glass nodular opacity of the right lung could be secondary to infect ious or inflammatory process. Repeat CT in 3-6 months is recommended. Reading Location[facility]
[2024-05-09 14:00] VITALS: BP 177/68; PULSE 64; RESP 12; O2SAT 97
[2024-05-09 14:30] VITALS: O2SAT 97
[2024-05-09 14:58] LABS: Pro- Brain NATRIURETIC PEPTIDE 44 pg/mL (<=900); Troponin T High Sensitivity 11 ng/L (<=14)
[2024-05-09 15:28] VITALS: BP 151/80; PULSE 69; RESP 16; TEMP 36.6; O2SAT 95
== END 2024-05-09 15:28 | disposition home or self-care (01) ==
PROVIDERS: Emergency Provider Emergency Medicine; PCP Family Medicine; Visit Provider Emergency Medicine
DX: U07.1 COVID-19 (principal); E86.0 Dehydration; I10 Essential (primary) hypertension; Z79.899 Other long term (current) drug therapy
CPT/HCPCS: 71045; 71275; 80048; 80076; 81001; 83880; 84484; 85025; 87086; 87088; 96360; 99285; Q9967; A4216

== ENCOUNTER → 2024-09-22 | Outpatient (CLI) | payer MEDICARE, OTHER, SELFPAY ==
--- OUTSIDE RECORDS SUMMARY | 2024-09-22 16:18 | XMS RPT_ITS | CCD ---
Author Organization [facility] Care Team Providers Care Interactive Marketing Strategist Name Role Phone KAUSHIK WOODS Admitting Unavailable LEMKAUSHIK SANDOVAL Attending Unavailable KAUSHIK WOODS Primary Care Unavailable LEMKAUSHIK SANDOVAL Admitting Unavailable LEMKAUSHIK SANDOVAL Attending Unavailable KAUSHIK WOODS Primary Care Unavailable SHAN BATISTA Consulting Unavailable PROVIDER, UNKNOWN Consulting Unavailable PROVIDER, UNKNOWN Consulting Unavailable Unavailable Primary Care Provider UnavailTIRSO Colbert Attending Unavailable Amadou PHILLIPS, Veronica Primary Care Provider Amadou PHILLIPS, Veronica Attending Provider Amadou PHILLIPS, Vreonica Referring Provider [phone] Amadou, Chalon Primary Care Unavailable McMorrow SUPERVISOR IN CHARGE, Ismael Attending Unavailable McMorrow SUPERVISOR IN CHARGE, Ismael Referring Unavailable Mark Ma Attending Unavailable Amadou, Chalon Primary Care Unavailable Amadou, Chalon Primary Care Unavailable AmadouVeronica montoya Attending Unavailable Amadou, Chalon Referring Unavailable AmadouVeronica montoya Attending Unavailable Jenifer Rawls Primary Care Unavailable Dr. Mark Ma DO Emergency Provider Allergies Allergy Classification Reported Allergen(s) Allergy Type Date of Onset Reaction(s) Facility (1 source) Citalopram Drug Allergy [facility] Repository (1 source) Egg Drug allergy (disorder) [facility] Repository (1 source) Lisinopril Drug Allergy [facility] Repository (2 sources) Dust; Translations: [DUST] Propensity to adverse reactions [address] [facility] (2 sources) egg extract; Translations: [EGG] Drug Allergy 8 [facility] (2 sources) tomato allergenic extract; Translations: [TOMATO] Drug Allergy 8 [facility] (2 sources) Mold Spores; Translations: [MOLD SPORES] Propensity to adverse reactions 8 [facility] Medications Current Medications Medication Drug Class(es) Dates Sig (Normalized) Sig (Original) amLODIPine 5 mg oral tablet (4 sources) Dihydropyridine Calcium Channel Elias Start: 04-05-2021 take 1 tablet by mouth once daily Amlodipine 5 mg tablet Active 5 mg PO DAILY April 05, 2021 1:00am estradiol 0.01 mg vaginal insert (3 sources) Estrogen Start: 04-04-2024 End: 04-04-2024 Estradiol (VAGIFEM) 10 mcg vaginal tablet Use 1 tablet vaginally once daily. For two weeks then twice weekly 30 tablet 3 04/04/2024 Active Start: 04-04-2024 End: 04-04-2024 estradiol 4 mcg vaginal supp ository maintenance pack (IMVEXXY) Use 1 Suppository vaginally two times a week. 8 Suppository 04/04/2024 04/04/2024 Discontinued (Course of therapy completed) lisinopril 10 mg oral tablet (1 source) Angiotensin Converting Enzyme Inhibitor Start: 11-09-2007 LISINOPRIL 10 MG TAB Take one(1) tablet daily. 0 11/09/2007 Active LORazepam 0.5 mg oral tablet (4 sources) Benzodiazepine Start: 04-06-2021 take 1 tablet by mouth three times daily as needed for anxiety Lorazepam (Ativan) 0.5 mg tablet Active 0.5 mg PO THREE TIMES A DAY as needed for anxiety April 06, 2021 1:00am losartan potassium 50 mg oral tablet (5 sources) Angiotensin 2 Receptor Elias Start: 04-05-2021 take 1 tablet by mouth once daily Losartan 50 mg tablet Active 50 mg PO DAILY April 05, 2021 1:00am Completed/Discontinued Medications Medication Drug Class(es) Dates Sig (Normalized) Sig (Original) methylcellulose 500 mg oral tablet (1 source) Start: 12-29-2007 End: 04-11-2024 methylcellulose(CIT RUCEL 500 MG TAB) TAKE TWO TABLETS TWICE DAILY 0 12/29/2007 04/11/2024 Discontinued Problems Active Problems Problem Classification Problem Date Documented Da te Episodic/Chronic Abdominal pain (1 source) Abdominal pain; Translations: [Unspecified abdominal pain] 11-09-2007 Episodic Anxiety disorders (4 sources) Anxiety; Translations: [Anxiety disorder, unspecified] 04-14-2021 Chronic Essential hypertension (5 sources) Hypertensive disorder; Translations: [Essential (primary) hypertension] Onset: 11-15-2023 04-06-2021 Chronic Fluid and electrolyte disorders (1 source) Dehydration; Translations: [Dehydration] 05-09-2024 Episodic Immunizations and screening for infectious disease (4 sources) Patient encounter status; Translations: [Encounter for screening for human papillomavirus (HPV)] Onset: 04-04-2024 04-05-2024 Episodic Menopausal disorders (1 source) Atrophy of vagina; Translations: [Postmenopausal atrophic vaginitis] 04-11-2024 Chronic Nonmalignant breast conditions (1 source) Breast finding ; Translations: [Dense breast tissue] 04-04-2024 Episodic Other gastrointestinal disorders (1 source) Diarrhea; Translations: [Diarrhea, unspecified] 11-09-2007 Episodic Other lower respiratory disease (1 source) Shortness of breath; Translations: [Shortness of breath] Onset: 05-13-2024 Episodic Other lower respiratory disease (1 source) Dyspnea; Translations: [Dyspnea, unspecified] 05-09-2024 Episodic Other nervous system disorders (4 sources) Numbness and tingling sensation of skin; Translations: [Anesthesia of skin] 07-15-2015 Episodic Other screening for suspected conditions (not mental disorders or infectious disease) (2 sources) Encounter for screening for malignant neoplasm of cervix; Translations: [Encounter for screening mammogram for malignant neoplasm of breast] Onset: 04-04-2024 Episodic Prolapse of female genital organs (1 source) Midline cystocele; Translations: [Cystocele, midline] 04-11-2024 Chronic Residual codes; unclassified (2 sources) Family history of breast cancer; Translations: [Family history of malignant neoplasm of breast] Onset: 04-04-2024 04-04-2024 Episodic Residual codes; unclassified (1 source) Family history of malignant neoplasm of breast; Translations: [Family history of breast cancer] Onset: 04-04-2024 Episodic Residual codes; unclassified (1 source) Asymptomatic menopausal state; Translations: [Asymptomatic menopausal state] Onset: 05-05-2024 Episodic Thyroid disorders (1 source) Other specified hypothyroidism; Translations: [Other specified hypothyroidism] Onset: 04-26-2024 Chronic Unclassified (1 source) Dense breast tissue; Translations: [Dense breast tissue] Onset: 04-04-2024 Viral infection (1 source) Disease caused by 2019-nCoV; Translations: [COVID-19] 05-09-2024 Episodic Past or Other Problems Problem Classification Problem Date Documented Da te Episodic/Chronic Other skin disorders (3 sources) Rash and other nonspecific skin eruption; Translations: [Rash and other nonspecific skin eruption] Onset: 04-21-2020 Episodic Unclassified (2 sources) Patient encounter status 04-11-2024 Unclassified (1 source) Breast finding 04-11-2024 Results Test Name Value Interpretation Reference Range Facility Urine Cultureon 05-11-2024 [facility] Mixed Gram Positive Organisms Pollock Count 11,000-25,000 [facility] Mixed contaminants. Submit a new specimen if indicated. Normal [facility] Comment on above: Performed By: #### M 100.2200 #### [facility] [address] [place], [place], [id number] Absolute neutrophil countOrd ered By: Mark Ma on 05-09-2024 Neutrophils (Bld) [#/Vol] 3.4 10*3/uL 2.0-7.7 [facility] Anion gap in Serum or Plasma Ordered By: Mark Ma on 05-09-2024 Anion gap [Moles/Vol] 14 mmol/L 06-29 [facility] BUN/creatinine ratioOrdered By: Mark Ma on 05-09-2024 Urea nitrogen/Creatinine [Mass ratio] 14.2 mg/mg - [facility] Basic Metabolic Profile (BMP )on 05-09-2024 BUN/CRE 14.2 RATIO Normal 12-04 [facility] Comment on above: Performed By: #### L 506.1000, L501.9520, L500.4100, L100.0100, L500.4050 #### [facility] [address] [place], [address] Calcium [Mass/Vol] 9.3 mg/dL Normal 7.6-11.0 [facility] Comment on above: Performed By: #### L 506.1000, L501.9520, L500.4100, L100.0100, L500.4050 #### [facility] [address] [place], [address] Chloride [Moles/Vol] 103 mmol/L Normal 98-108 [facility] Comment on above: Performed By: #### L 506.1000, L501.9520, L500.4100, L100.0100, L500.4050 #### [facility] [address] [place], [address] CO2 [Moles/Vol] 23.4 mmol/L Normal 21.0-32.0 [facility] Comment on above: Performed By: #### L 506.1000, L501.9520, L500.4100, L100.0100, L500.4050 #### [facility] [address] [place], [address] Creatinine [Mass/Vol] 0.86 mg/dL Normal 0.70-1.20 [facility] Comment on above: Performed By: #### L 506.1000, L501.9520, L500.4100, L100.0100, L500.4050 #### [facility] [address] [place], [address] ECRCL 65.16 ml/min Normal 50-250 [facility] Comment on above: Performed By: #### L 506.1000, L501.9520, L500.4100, L100.0100, L500.4050 #### [facility] [address] [place], [address] GAP 14 Normal 5-15 [facility] Comment on above: Performed By: #### L 506.1000, L501.9520, L500.4100, L100.0100, L500.4050 #### [facility] [address] [place], [address] GFR/1.73 sq M.predicted among non-blacks MDRD (S/P/Bld) [Vol rate/Area] 73 mL/min/{1.73_m2} Normal >60 [facility] Comment on above: Result Comment: mL/m in/1.73m2 CKD-EPI Creatinine Equation (2020) Performed By: #### L 506.1000, L501.9520, L500.4100, L100.0100, L500.4050 #### [facility] [address] [place], [address] Glucose [Mass/Vol] 110 mg/dL High 70-99 [facility] Comment on above: Performed By: #### L 506.1000, L501.9520, L500.4100, L100.0100, L500.4050 #### [facility] [address] [place], [address] Potassium [Moles/Vol] 3.7 mmol/L Normal 3.3-5.1 [facility] Comment on above: Performed By: #### L 506.1000, L501.9520, L500.4100, L100.0100, L500.4050 #### [facility] [address] [place], [address] Sodium [Moles/Vol] 140 mmol/L Normal 133-145 [facility] Comment on above: Performed By: #### L 506.1000, L501.9520, L500.4100, L100.0100, L500.4050 #### [facility] [address] [place], [address] Urea nitrogen [Mass/Vol] 12 mg/dL Normal 4-19 [facility] Comment on above: Performed By: #### L 506.1000, L501.9520, L500.4100, L100.0100, L500.4050 #### [facility] [address] [place], [address] Basophil percentageOrdered B y: Mark Francesca on 05-09-2024 Basophils/100 WBC (Bld) 0.5 % 0-1 [facility] Bilirubin Test strip Ql (U)O rdered By: Mark Francesca on 05-09-2024 Bilirubin Ql (U) Negative Negative [facility] Bilirubin directOrdered By: Mark Ma on 05-09-2024 Bilirubin.direct [Mass/Vol] 0.21 mg/dL 0.00-0.30 [facility] Bilirubin, totalOrdered By: Mark Ma on 05-09-2024 Bilirubin [Mass/Vol] 0.41 mg/dL 0.00-1.30 [facility] CBC W/Diff, Automatedon 04-16 Absolute Lymph 0.51 X10 3/uL Low 0.83-4.51 [facility] Comment on above: Performed By: #### L 506.1000, L501.9520, L500.4100, L100.0100, L500.4050 #### [facility] [address] [place], [address] Absolute Neut 3.4 X10 3/uL Normal 2.0-7.7 [facility] Comment on above: Performed By: #### L 506.1000, L501.9520, L500.4100, L100.0100, L500.4050 #### [facility] [address] [place], [address] Basophils/100 WBC (Bld) 0.5 % Normal 0-1 [facility] Comment on above: Performed By: #### L 506.1000, L501.9520, L500.4100, L100.0100, L500.4050 #### [facility] [address] [place], [address] Eosinophils/100 WBC (Bld) 0.0 % Normal 0-5 [facility] Comment on above: Performed By: #### L 506.1000, L501.9520, L500.4100, L100.0100, L500.4050 #### [facility] [address] [place], [address] Erythrocyte distribution width (RBC) [Ratio] 12.4 % Normal 11.6-14.6 [facility] Comment on above: Performed By: #### L 506.1000, L501.9520, L500.4100, L100.0100, L500.4050 #### [facility] [address] [place], [address] Hematocrit (Bld) [Volume fraction] 47.7 % High 37-47 [facility] Comment on above: Performed By: #### L 506.1000, L501.9520, L500.4100, L100.0100, L500.4050 #### [facility] [address] [place], [address] Hemoglobin (Bld) [Mass/Vol] 16.2 g/dL High 12.0-15.0 [facility] Comment on above: Performed By: #### L 506.1000, L501.9520, L500.4100, L100.0100, L500.4050 #### [facility] [address] [place], [address] IG% 0.200 Normal 0.0-0.9 [facility] Comment on above: Result Comment: IG% - Immature Granulocytes (promyelocytes, myelocytes and metamyelocytes) > 1% indicates that a LEFT SHIFT is Present. Performed By: #### L 506.1000, L501.9520, L500.4100, L100.0100, L500.4050 #### [facility] [address] [place], [address] Lymphocytes/100 WBC (Bld) 11.9 % Low 19-41 [facility] Comment on above: Performed By: #### L 506.1000, L501.9520, L500.4100, L100.0100, L500.4050 #### [facility] [address] [place], [address] MCH (RBC) [Entitic mass] 30.7 pg Normal 27.0-32.0 [facility] Comment on above: Performed By: #### L 506.1000, L501.9520, L500.4100, L100.0100, L500.4050 #### [facility] [address] [place], [address] MCHC (RBC) [Mass/Vol] 34.0 g/dL Normal 32-36 [facility] Comment on above: Performed By: #### L 506.1000, L501.9520, L500.4100, L100.0100, L500.4050 #### [facility] [address] [place], [address] MCV (RBC) [Entitic vol] 90.5 fL Normal 81-99 [facility] Comment on above: Performed By: #### L 506.1000, L501.9520, L500.4100, L100.0100, L500.4050 #### [facility] [address] [place], [address] Monocytes/100 WBC (Bld) 7.5 % Normal 0-10 [facility] Comment on above: Performed By: #### L 506.1000, L501.9520, L500.4100, L100.0100, L500.4050 #### [facility] [address] [place], [address] Neutrophils/100 WBC (Bld) 79.9 % High 47-70 [facility] Comment on above: Performed By: #### L 506.1000, L501.9520, L500.4100, L100.0100, L500.4050 #### [facility] [address] [place], [address] Nucleated RBC (Bld) [#/Vol] 0 10*3/uL Normal 0-5 [facility] Comment on above: Performed By: #### L 506.1000, L501.9520, L500.4100, L100.0100, L500.4050 #### [facility] [address] [place], [address] Platelet mean volume (Bld) [Entitic vol] 10.2 fL Normal 6.2-12.0 [facility] Comment on above: Performed By: #### L 506.1000, L501.9520, L500.4100, L100.0100, L500.4050 #### [facility] [address] [place], [address] Platelets (Bld) [#/Vol] 195 10*3/uL Normal 150-450 [facility] Comment on above: Performed By: #### L 506.1000, L501.9520, L500.4100, L100.0100, L500.4050 #### [facility] [address] [place], [address] RBC (Bld) [#/Vol] 5.27 10*6/uL Normal 4.2-5.4 [facility] Comment on above: Performed By: #### L 506.1000, L501.9520, L500.4100, L100.0100, L500.4050 #### [facility] [address] [place], [address] RDW SD 41.2 fl Normal 35.1-43.9 [facility] Comment on above: Performed By: #### L 506.1000, L501.9520, L500.4100, L100.0100, L500.4050 #### [facility] [address] [place], [address] WBC (Bld) [#/Vol] 4.3 10*3/uL Low 4.4-11.0 [facility] Comment on above: Performed By: #### L 506.1000, L501.9520, L500.4100, L100.0100, L500.4050 #### [facility] [address] [place], [address] CTA Chest W/WO Contraston CTA Chest W/WO Contrast [facility] Imaging Services [address] [place] [address] CTA Chest W/WO Contrast MR#: [id number] Acct: [id number] Name: YULIANA LOCK Rep #: [id number] : 1955 F 68 From: Carlos Alberto Godoy MD PCP: Dr. Veronica Tobar MD Status: REG ER Study: CTA Chest W/WO Contrast Date of Exam: 05/09/24 Exam# [id number] Ordering Dr: Mark Ma DO EXAM: CT Angiography Chest Without and With Intravenous Contrast CLINICAL INDICATION: PULMONARY EMBOLISM TECHNIQUE: Axial computed tomographic angiography images of the chest without and with intravenous contrast. This CT exam was performed using one or more of the following dose reduction techniques: automated exposure control, adjustment of the mA and/or kV according to patient size, and/or use of iterative reconstruction technique. MIP reconstructed images were created and reviewed. COMPARISON: No relevant prior studies available. FINDINGS: LIMITATIONS: Suboptimal opacification of the pulmonary arteries. PULMONARY ARTERIES: No pulmonary embolism is identified. Some of the distal pulmonary arteries cannot be evaluated due to suboptimal opacification. AORTA: No acute findings. No thoracic aortic aneurysm. LUNGS AND PLEURAL SPACES: Bilateral apical scarring. Lung emphysema/COPD. 3 mm ground-glass nodule of the right upper lobe. Scattered 4 mm ground-glass nodule of the right lower lobe. No consolidation. No significant effusion. No pneumothorax. HEART: Unremarkable. No cardiomegaly. No significant pericardial effusion. No evidence of RV dysfunction. MEDIASTINUM: Scattered mediastinal lymph nodes some of which are upper limits of normal in size and are most likely reactive lymph nodes. BONES/JOINTS: No acute fracture. No dislocation. SOFT TISSUES: Unremarkable. LYMPH NODES: See above. CT/CTA Chest W/WO Contrast IMPRESSION: 1. No pulmonary embolism is identified. Some of the distal pulmonary arteries cannot be evaluated due to suboptimal opacification. 2. Scattered mediastinal lymph nodes some of which are upper limits of normal in size and are most likely reactive lymph nodes. 3. Ground-glass nodular opacity of the right lung could be secondary to infectious or inflammatory process. Repeat CT in 3-6 months is recommended. Reading Location: [facility] CC: Dr. Veronica Tobar MD; Dr. Mark Ma DO Door Manager: Signed Normal [facility] Carbon dioxide, total [Moles /volume] in Central venous bloodOrdered By: Mark Ma on 05-09-2024 CO2 [Moles/Vol] 23.4 mmol/L 21.0-32.0 [facility] Chest 1 View (Portable)on Chest 1 View (Portable) [facility] Imaging Services [address] [place] [id number] Chest 1 View (Portable) MR#: [id number] Acct: [id number] Name: YULIANA LOCK Rep #: [id number] : 1955 F 68 From: Carlos Alberto Godoy MD PCP: Dr. Veronica Tobar MD Status: REG ER Study: Chest 1 View (Portable) Date of Exam: 05/09/24 Exam# [id number] Ordering Dr: Mark Ma DO EXAM: XR Chest, 1 View CLINICAL INDICATION: DYSPNEA TECHNIQUE: Frontal view of the chest. COMPARISON: No relevant prior studies available. FINDINGS: LUNGS AND PLEURAL SPACES: Pulmonary venous congestion. No consolidation. No pneumothorax. HEART: Unremarkable. No cardiomegaly. MEDIASTINUM: Unremarkable. Normal mediastinal contour. BONES/JOINTS: Unremarkable. No acute fracture. RAD/Chest 1 View (Portable) IMPRESSION: Pulmonary venous congestion. Reading Location: [facility] CC: Dr. Veronica Tobar MD; Dr. Mark Ma DO Door Manager: Signed Normal [facility] Chloride assayOrdered By: Maverick Ma on 03-25-2025 Chloride [Moles/Vol] 103 mmol/L 98-108 [facility] Emergency Department Summary on 05-09-2024 Emergency Department Summary [facility] Medical Records Department [address] [place] [address] Emergency Department Summary 05/09/24 MR#: [id number] Acct: [id number] Name: YULIANA LOCK Rep #: [id number] : 1955 68 From: Mark Ma DO PCP: Dr. Veronica Tobar MD Status:DEP ER Location: ED HPI History of Present Illness Chief Complaint: Weakness Informant: patient and spouse/S.O. Narrative Narrative: 68-year-old female history of hypertension presenting to the emergency room with a chief complaint of feeling ill. Patient states she has been sick for 11 days. On Wednesday she was diagnosed with COVID-19. She was told that she was not better to return to her primary care doctor's office. She went back today. She states she cannot breathe. By this when I inquired directly she states she cannot breathe through her nose. She states that she is having a hard time laying flat. She states that when she does fall asleep she wakes up gasping. She denies any chest pain. She notes diarrhea. She notes she is urinating less. She had an EKG performed in the office that shows a normal sinus rhythm and a copy of that EKG was sent with her as well as documentation of her COVID- 19 positive status. She notes sweats but no fever. No significant cough. [facility] Medical History Hypothyroid Home Medications ???Medication ???Instructions ???Recorded ???Last Taken ???Type amlodipine 5 mg tablet 5 mg PO DAILY 04/05/21 Unknown His tory losartan 50 mg tablet 50 mg PO DAILY 04/05/21 Unknown Hi story lorazepam 0.5 mg tablet (Ativan) 0.5 mg PO TID PRN anxiety #10 tabs 04/06/21 Unknown Rx Allergy/AdvReac Type Severity Reaction Status Date / Time No Known Allergies Allergy Verified 04/05/21 23:49 Social History household members: spouse Smoking Status: Never smoker substance use type: does not use ROS ROS ED Constitutional Constitutional ED: Reports sweats; Denies chills, fever(s) or weight loss Eyes Eyes: Denies change in vision or diplopia ENT ENT ED: Reports rhinorrhea and other Details: Nasal congestion ; Denies ear pain or sore throat Cardiovascular Cardiovascular: Denies chest pain, orthopnea, palpitations or racing heartbeat Respiratory/Chest Respiratory/Chest: Reports dyspnea; Denies cough or orthopnea Gastrointestinal Gastrointestinal: Reports diarrhea; Denies abdominal pain, nausea or vomiting Genitourinary Genitourinary ED: Denies dysuria, hematuria or urinary frequency Musculoskeletal Musculoskeletal: Denies arthralgias or myalgias Integumentary Denies abscess or rash Neurologic Neurologic: Denies headache(s) or weakness Psychiatric Psychiatric: Denies anxiety, depression, suicidal ideation or suicidal thoughts Endocrine Endocrinology: Denies polydipsia, polyphagia or polyuria Allergic/Immunologic Allergic/Immunologic ED: Denies mouth swelling, tongue swelling or urticaria EXAM Physical Exam Narrative Exam Narrative: Patient is sitting up in the bed in no apparent distress. She is 96% on room air. Const Vital Signs: 05/09/24 12:01 05/09/24 12:04 05/09/24 12:05 Temperature 99 F 99 F Temperature Source Oral Oral Pulse Rate 71 71 Pulse Rate [Lying] Pulse Rate [Sitting (for 1 minute prior to obtaining)] Respiratory Rate 18 17 Respiratory Effort Normal Respiratory Pattern Normal Blood Pressure 159/93 H 159/93 H Blood Pressure [Lying] Blood Pressure [Sitting (for 1 minute prior to obtaining)] Blood Pressure Mean 115 115 Blood Pressure Mean [Lying] Blood Pressure Mean [Sitting (for 1 minute prior to obtaining)] Pulse Ox 96 96 Oxygen Delivery Method Room Air Room Air 05/09/24 13:39 05/09/24 14:00 Temperature Temperature Source Pulse Rate 64 Pulse Rate [Lying] 77 Pulse Rate [Sitting (for 1 minute prior to obtaining)] 70 Respiratory Rate 12 Respiratory Effort Respiratory Pattern Blood Pressure 177/68 H Blood Pressure [Lying] 148/78 H Blood Pressure [Sitting (for 1 minute prior to obtaining)] 140/87 H Blood Pressure Mean 99 Blood Pressure Mean [Lying] 101 Blood Pressure Mean [Sitting (for 1 minute prior to obtaining)] 104 Pulse Ox 97 Oxygen Delivery Method Positive well nourished and well developed General Appearance ED: well developed HEENT Reports normocephalic, head/scalp atraumatic and moist mucous membranes HEENT Narrative: Turbinate edema is noted Eyes PERRL and EOMs intact bilaterally Neck no lymphadenopathy, supple and no JVD Resp normal respiratory effort and clear to auscultation bilaterally Cardio regular rate, regular rhythm and no murmurs GI normal to inspection, nondistended, normoactive bowel so (more content not included)... Normal [facility] Eosinophil percentageOrdered By: Mark Ma on 05-09-2024 Eosinophils/100 WBC (Bld) 0.0 % 0-5 [facility] Epithelial cells.squamous LM Ql (Urine sed)Ordered By: Mark Ma on 05-09-2024 Epithelial cells.squamous LM.HPF (Urine sed) [#/Area] 0 /[HPF] 5-10 [facility] Erythrocyte distribution wid th ratioOrdered By: Mark Ma on 05-09-2024 Erythrocyte distribution width (RBC) [Ratio] 12.4 % 11.6-14.6 [facility] Erythrocyte distribution wid th standard deviationOrdered By: Mark Ma on 05-09-2024 Erythrocyte distribution width (RBC) [Entitic vol] 41.2 fL 35.1-43.9 [facility] Estimation of creatinine patricia aranceOrdered By: Mark Ma on 05-09-2024 Estimated Creatinine Clearance Calc 65.16 ml/min 50-250 [facility] GFR/1.73 sq M.predicted tim g non-blacks MDRD (S/P/Bld) [Vol rate/Area]Ordered By: Mark Ma on 05-09-2024 Estimated GFR (MDRD) Non-Af Amer 73 >60 [facility] Comment on above: mL/min/1.73m2 CKD-EP I Creatinine Equation (2020) Glucose Ql (U)Ordered By: Maverick Ma on 05-09-2024 Urine Glucose (UA) Normal mg/dl Normal [facility] Hematocrit Auto (Bld) [Volum e fraction]Ordered By: Mark Ma on 05-09-2024 Hematocrit (Bld) [Volume fraction] 47.7 % High 37-47 [facility] Hemoglobin measurementOrdere d By: Mark Ma on 05-09-2024 Hemoglobin (Bld) [Mass/Vol] 16.2 g/dL High 12.0-15.0 [facility] Immature granulocytes/100 WB C Auto (Bld)Ordered By: Mark Ma on 05-09-2024 Immature granulocytes/100 WBC (Bld) 0.200 % 0.0-0.9 [facility] Comment on above: IG% - Immature Granu locytes (promyelocytes, myelocytes and metamyelocytes) > 1% indicates that a LEFT SHIFT is Present. Ketones Test strip Ql (U)Ord ered By: Mark Ma on 05-09-2024 Ketones Ql (U) 150 mg/dl Abnormal Negative [facility] Comment on above: CRITICAL VALUE *HCRI TICAL VALUE CALLED TO [facility]05/09/24 1317 Daly Kaiser.RESULTS READ BACK BY SAME. [id number] 05-09-2024 Trop T High Sen 11 ng/L Normal <=14 [facility] Comment on above: Performed By: #### L 506.1000, L501.9520, L500.4100, L100.0100, L500.4050 #### [facility] [address] [place], [place], [id number] 05-09-2024 Natriuretic peptide B (Bld) [Mass/Vol] 44 pg/mL Normal <=900 [facility] Comment on above: Result Comment: Hear t Failure Unlikely: < 300 pg/mL Heart Failure Likely < 50 Years: > 450 pg/mL 50-75 Years: > 900 pg/mL >75 Years: > 1800 pg/mL Performed By: #### L 506.1000, L501.9520, L500.4100, L100.0100, L500.4050 #### [facility] [address] [place], [place], [id number] Laboratory - Chemistry and C hemistry - challengeOrdered By: Mark Ma on 05-09-2024 AST [Catalytic activity/Vol] 63 U/L High <32 [facility] Natriuretic peptide B (Bld) [Mass/Vol] 44 pg/mL <900 [facility] Comment on above: Heart Failure Unlike ly: < 300 pg/mLHeart Failure Likely< 50 Years: > 450 pg/mL50-75 Years: > 900 pg/mL>75 Years: > 1800 pg/mL Liver Profileon 05-09-2024 Albumin [Mass/Vol] 4.2 g/dL Normal 3.4-4.8 [facility] Comment on above: Performed By: #### L 506.1000, L501.9520, L500.4100, L100.0100, L500.4050 #### [facility] [address] [place], [address] ALK PHOS 89 U/L Normal 35-104 [facility] Comment on above: Performed By: #### L 506.1000, L501.9520, L500.4100, L100.0100, L500.4050 #### [facility] [address] [place], [address] ALT [Catalytic activity/Vol] 84 U/L High <=34 [facility] Comment on above: Performed By: #### L 506.1000, L501.9520, L500.4100, L100.0100, L500.4050 #### [facility] [address] [place], [address] AST [Catalytic activity/Vol] 63 U/L High <=31 [facility] Comment on above: Performed By: #### L 506.1000, L501.9520, L500.4100, L100.0100, L500.4050 #### [facility] [address] [place], [address] Bilirubin [Mass/Vol] 0.41 mg/dL Normal 0.00-1.30 [facility] Comment on above: Performed By: #### L 506.1000, L501.9520, L500.4100, L100.0100, L500.4050 #### [facility] [address] [place], [address] Bilirubin.direct [Mass/Vol] 0.21 mg/dL Normal 0.00-0.30 [facility] Comment on above: Performed By: #### L 506.1000, L501.9520, L500.4100, L100.0100, L500.4050 #### [facility] [address] [place], [address] Globulin (S) [Mass/Vol] 2.9 g/dL Normal 2.2-4.2 [facility] Comment on above: Performed By: #### L 506.1000, [id number], L500.4100, L100.0100, L500.4050 #### [facility] [address] [place], [address] T PROT 7.1 g/dL Normal 5.9-8.4 [facility] Comment on above: Performed By: #### L 506.1000, L501.9520, L500.4100, L100.0100, L500.4050 #### [facility] [address] [place], [address] Lymphocytes Auto (Unsp spec) [#/Vol]Ordered By: Mark Ma on 05-09-2024 Lymphocytes (Bld) [#/Vol] 0.51 10*3/uL Low 0.83-4.51 [facility] Lymphocytes/100 WBC Auto (Un sp spec)Ordered By: Mark Ma on 05-09-2024 Lymphocytes/100 WBC (Bld) 11.9 % Low 19-41 [facility] MCV (mean corpuscular volume ) determinationOrdered By: Mark Ma on 05-09-2024 MCV (RBC) [Entitic vol] 90.5 fL 81-99 [facility] Mean corpuscular hemoglobin (MCH) determinationOrdered By: Mark Ma on 05-09-2024 MCH (RBC) [Entitic mass] 30.7 pg 27.0-32.0 [facility] Mean corpuscular hemoglobin concentration (MCHC) determinationOrdered By: Mark Ma on 05-09-2024 MCHC (RBC) [Mass/Vol] 34.0 g/dL 32-36 [facility] Mean platelet volume determi nationOrdered By: Mark Ma on 05-09-2024 Platelet mean volume (Bld) [Entitic vol] 10.2 fL 6.2-12.0 [facility] Microscopic analysis of urin e for red blood cells (RBC)Ordered By: Mark Ma on 05-09-2024 Urine RBC 0-5 SEEN /hpf 0-5 [facility] Monocyte percentageOrdered B y: Mark Ma on 05-09-2024 Monocytes/100 WBC (Bld) 7.5 % 0-10 [facility] Mucus LM Ql (Urine sed)Order ed By: Mark Ma on 05-09-2024 Mucus Ql (Urine sed) RARE /hpf [facility] Neutrophil percentageOrdered By: Mark Ma on 05-09-2024 Neutrophils/100 WBC (Bld) 79.9 % High 47-70 [facility] Nitrite Test strip Ql (U)Ord ered By: Mark Ma on 05-09-2024 Nitrite Ql (U) Negative Negative [facility] No Panel InformationOrdered By: Mark Ma on 05-09-2024 Troponin T High Sensitivity 11 ng/L <14 [facility] Nucleated red blood cell per centageOrdered By: Mark Ma on 05-09-2024 Nucleated RBC/100 WBC (Bld) [Ratio] 0 % 0-5 [facility] Platelet countOrdered By: Maverick Ma on 05-09-2024 Platelets (Bld) [#/Vol] 195 10*3/uL 150-450 [facility] Potassium (Unsp spec) [Mass/ Vol]Ordered By: Mark Ma on 05-09-2024 Potassium [Moles/Vol] 3.7 mmol/L 3.3-5.1 [facility] Protein Test strip Ql (U)Ord ered By: Mark Ma on 05-09-2024 Protein Ql (U) 30 mg/dl High Negative [facility] RBC Auto (Bld) [#/Vol]Ordere d By: Mark Ma on 05-09-2024 RBC (Bld) [#/Vol] 5.27 10*6/uL 4.2-5.4 [facility] Serum creatinine measurement (mass/volume)Ordered By: Mark Ma on 05-09-2024 Creatinine [Mass/Vol] 0.86 mg/dL 0.70-1.20 [facility] Serum globulin measurementOr dered By: Mark Ma on 05-09-2024 Globulin (S) [Mass/Vol] 2.9 g/dL 2.2-4.2 [facility] Serum glucose measurement (m ass/volume)Ordered By: Mark Ma on 05-09-2024 Glucose [Mass/Vol] 110 mg/dL High 70-99 [facility] Serum or plasma alanine bacon otransferase (ALT) measurementOrdered By: Mark Ma on 05-09-2024 ALT [Catalytic activity/Vol] 84 U/L High <35 [facility] Serum or plasma albumin deondre urement (mass/volume)Ordered By: Mark Ma on 05-09-2024 Albumin [Mass/Vol] 4.2 g/dL 3.4-4.8 [facility] Serum or plasma alkaline renae sphatase measurementOrdered By: Mark Ma on 05-09-2024 ALP [Catalytic activity/Vol] 89 U/L 35-104 [facility] Serum or plasma calcium deondre urement (mass/volume)Ordered By: Mark Ma on 05-09-2024 Calcium [Mass/Vol] 9.3 mg/dL 7.6-11.0 [facility] Serum or plasma urea nitroge n measurement (mass/volume)Ordered By: Mark Ma on 05-09-2024 Urea nitrogen [Mass/Vol] 12 mg/dL 4-19 [facility] Sodium levelOrdered By: Cezar Ma on 05-09-2024 Sodium [Moles/Vol] 140 mmol/L 133-145 [facility] Total proteinOrdered By: Ruben Ma on 05-09-2024 Protein [Mass/Vol] 7.1 g/dL 5.9-8.4 [facility] Urinalysis, Completeon 05-09 BACTERIA 1+ /hpf Normal None Seen [facility] Comment on above: Order Comment: CLEAN CATCH Performed By: #### L 400.0001 #### [facility] [address] [place], [address] EPI,SQUAMOUS 0-5 SEEN Normal 5-10 [facility] Comment on above: Order Comment: CLEAN CATCH Performed By: #### L 400.0001 #### [facility] [address] [place], [address] Mucus Ql (Urine sed) RARE Normal [facility] Comment on above: Order Comment: CLEAN CATCH Performed By: #### L 400.0001 #### [facility] [address] [place], [address] RBC 0-5 SEEN Normal 0-5 [facility] Comment on above: Order Comment: CLEAN CATCH Performed By: #### L 400.0001 #### [facility] [address] [place], [address] WBC 5-10 SEEN Normal 0-5 [facility] Comment on above: Order Comment: CLEAN CATCH Performed By: #### L 400.0001 #### [facility] [address] [place], [address] Urine blood detectionOrdered By: Mark Ma on 05-09-2024 Urine Occult Blood 10 /ul High Negative [facility] Urine clarityOrdered By: Ruben Ma on 05-09-2024 Clarity (U) Sl. Cloudy Clear [facility] Urine color determinationOrd ered By: Mark Ma on 05-09-2024 Color (U) Yellow Yellow [facility] Urine leukocyte esterase det ection by dipstickOrdered By: Mark Ma on 05-09-2024 Leukocyte esterase Test strip Ql (U) 25 /ul High Negative [facility] Urine pHOrdered By: Mark ramires on 05-09-2024 pH (U) 6.0 [pH] 5.0 - 8.0 [facility] Urine sediment bacteria coun t by microscopy (number/high power field)Ordered By: Mark Ma on 05-09-2024 Bacteria LM.HPF (Urine sed) [#/Area] 1 /[HPF] None Seen [facility] Urine specific gravity measu rementOrdered By: Mark Ma on 05-09-2024 Specific gravity (U) [Rel density] 1.010 1.002-1.030 [facility] Urobilinogen Ql (U)Ordered B y: Mark Ma on 05-09-2024 Urobilinogen (U) [Mass/Vol] 1 mg/dL High Normal [facility] White blood cell (WBC) count Ordered By: Mark Ma on 05-09-2024 WBC (Bld) [#/Vol] 4.3 10*3/uL Low 4.4-11.0 [facility] White blood cell countOrdere d By: Mark Ma on 05-09-2024 Urine WBC 5-10 SEEN /hpf 0-5 [facility] Calculated very low density lipoprotein (VLDL) cholesterol measurementOrdered By: Ismael Matias on 04-13-2024 VLDL Cholesterol 34 mg/dL 5-40 [facility] Hemoglobin A1con 04-13-2024 HbA1c (Bld) [Mass fraction] 5.5 % Low <=5.6 [facility] Comment on above: Order Comment: Order Date: 09/30/23 Order Info: 0184-1 - CBCD Performed By: #### L 506.1000, L501.9551, L500.4100, L100.0100, L500.4050 #### [facility] [address] [place], [address] Hemoglobin A1c percentageOrd ered By: Ismael Matias on 04-13-2024 HbA1c (Bld) [Mass fraction] 5.5 % Low >5.7 [facility] LDL calc ser/plasOrdered By: Ismael Matias on 04-13-2024 LDL Cholesterol, Calculated 129 mg/dL [facility] Comment on above: Cijvcrdzrr=684-314 m g/dL & Higher Bamm=814 mg/dL or greater Lipid Profileon 04-13-2024 CHOL:HDL 3.59 Normal [facility] Comment on above: Order Comment: Order Date: 09/30/23 Order Info: 0184-1 - CBCD Performed By: #### L 506.1000, L501.9520, L500.4100, L100.0100, L500.4050 #### [facility] [address] [place], [address] Cholesterol [Mass/Vol] 226 mg/dL High <=200 [facility] Comment on above: Order Comment: Order Date: 09/30/23 Order Info: 0184-1 - CBCD Result Comment: Chol esterol level, Desirable <200 mg/dL Borderline high cholesterol 200-239 mg/dL High cholesterol >=240 mg/dL Recommendations of the NCEP Adult Treatment Panel for the following risk-cutoff thresholds for the [place] population. Performed By: #### L 506.1000, L501.9520, L500.4100, L100.0100, L500.4050 #### [facility] [address] [place], [address] Cholesterol in HDL [Mass/Vol] 63 mg/dL Normal [facility] Comment on above: Order Comment: Order Date: 09/30/23 Order Info: 0184-1 - CBCD Result Comment: Gely onal Cholesterol Education Program (NCEP) guidelines: <40 mg/dL: Low HDL-cholesterol (major risk factor for CHD) >= 60 mg/dL: High HDL-cholesterol (negative risk factor for CHD) HDL-cholesterol is affected by a number of factors, e.g. smoking, exercise, hormones, sex and age. Performed By: #### L 506.1000, L501.9520, L500.4100, L100.0100, L500.4050 #### [facility] [address] [place], [address] Cholesterol in LDL [Mass/Vol] 129 mg/dL Normal [facility] Comment on above: Order Comment: Order Date: 09/30/23 Order Info: 0184-1 - CBCD Result Comment: Bord sbrqnz=473-022 mg/dL Higher Vubl=012 mg/dL or greater Performed By: #### L 506.1000, L501.9520, L500.4100, L100.0100, L500.4050 #### [facility] [address] [place], [address] Cholesterol in VLDL [Mass/Vol] 34 mg/dL Normal 5-40 [facility] Comment on above: Order Comment: Order Date: 09/30/23 Order Info: 0184-1 - CBCD Performed By: #### L 506.1000, L501.9520, L500.4100, L100.0100, L500.4050 #### [facility] [address] [place], [place], [id number] [phone] Triglyceride [Mass/Vol] 172 mg/dL Normal [facility] Comment on above: Order Comment: Order Date: 09/30/23 Order Info: 0184-1 - CBCD Result Comment: The drugs N-Acetylcysteine and Metamizole may falsely depress this assay. Normal range: <150 mg/dL Borderline High: 150-199 mg/dL High: 200-499 mg/dL Very High: >500 mg/dL Performed By: #### L 506.1000, L501.9520, L500.4100, L100.0100, L500.4050 #### [facility] [address] [place], [place], [id number] Screening total cholesterol/ high density lipoprotein (HDL) cholesterol ratioOrdered By: Ismael Matias on 04-13-2024 Cholesterol.total/Choles terol in HDL [Mass ratio] 3.59 {ratio} [facility] Serum or plasma cholesterol in HDL measurement (mass/volume)Ordered By: Ismael Matias on 04-13-2024 Cholesterol in HDL [Mass/Vol] 63 mg/dL >40 [facility] Comment on above: National Cholesterol Education Program (NCEP) guidelines:<40 mg/dL: Low HDL-cholesterol (major risk factor for CHD)>= 60 mg/dL: High HDL-cholesterol (negative risk factor for CHD)HDL-cholesterol is affected by a number of factors, e.g. smoking, exercise, hormones, sex and age. Serum or plasma cholesterol measurement (mass/volume)Ordered By: Ismael Matias on 04-13-2024 Cholesterol [Mass/Vol] 226 mg/dL High <201 [facility] Comment on above: Cholesterol level, D esirable <200 mg/dLBorderline high cholesterol 200-239 mg/dLHigh cholesterol >=240 mg/dLRecommendations of the NCEP Adult Treatment Panel for the following risk-cutoff thresholds for the [place] population. TSH DL <= 0.005 mIU/L QnOrde red By: Veronica Tobar on 04-13-2024 Thyroid Stimulating Hormone (TSH) 3.460 uIU/mL 0.300-4.200 [facility] Thyroid Stim Hormone (TSH)on 04-13-2024 TSH 3.460 uIU/mL Normal 0.300-4.200 [facility] Comment on above: Order Comment: Order Date: 09/30/23 Order Info: 0184-1 - CBCD Performed By: #### L 506.1000, L501.9520, L500.4100, L100.0100, L500.4050 #### [facility] [address] [place], [address] Triglycerides measurementOrd ered By: Ismael Matias on 04-13-2024 Triglyceride [Mass/Vol] 172 mg/dL <199 [facility] Comment on above: The drugs N-Acetylcy steine and Metamizole may falsely depress this assay. Normal range: <150 mg/dLBorderline High: 150-199 mg/dLHigh: 200-499 mg/dLVery High: >500 mg/dL HIGH RISK HUMAN PAPILLOMA SHANTHI (HPV), PCR FOR DETECTION AND GENOTYPINGOrdered By: James Cintron on 04-11-2024 HPV 16 Ag Ql (Unsp spec) Not detected Not detec [facility] HPV 18 Ag Ql (Unsp spec) Not detected Not detec [facility] HPV 31+33+35+39+45+51+52+56+ 58+59+66+68 DNA JENNIFER+probe Ql (Cvx) Not detected Not detected [facility] Comment on above: High Risk HPV Other Type includes HPV types 31, 33, 35, 39, 45, 51, 52, 56, 58, 59, 66 and 68. Interpretation and review of laboratory results Normal [facility] This test was developed and its performance characteristics determined by [facility] [place] ([facility] It has not been cleared or approved by the FDA. [facility] is regulated under CLIA as qualified to perform high-complexity testing. This test is used for clinical purposes. It should not be regarded as investigational or for research. [facility] No Panel InformationOrdered By: Hardeep Joiner on 04-11-2024 [facility] PAP TESTOrdered By: Hardeep odonnell on 04-11-2024 Case Report Gynecologic Cytology Report Case: [id number] Authorizing Provider: Tirso Vargas APRN.CNM Collected: 04/04/2024 02:44 PM Ordering Location: OB/Gynecology Received: 04/04/2024 04:16 PM First Screen: Hardeep Joiner Tech Specimen: Pap Test, ThinPrep, Cervix [facility] Clinical History Routine Exam [facility] Interpretation Negative [facility] LMP 02/15/1998 [facility] Pap Disclaimer w8tjwHXaHEAop1ndSMWt bGFuZzEwMzNcZnRuYmpc pGMkEHeszyOuNWjwz8Op R9SmJvUpZWrmtdIvEIQx WbrnaljoWPNrVCK3elAt MYQsUKboCBXfLMroCd2j jCMqbZmdTtKhTUXqj9lq foDFjeierJa2v6pyPCLb DhG5wTWbDKsoK3opotHh gFTiJXHwFUq0pD10BQGm wE1zwQNrGYyfzsUnSfG4 GJxgFGSaFgS0KHGcaPTi JGZgX8xcVRFkPEdgDIBy CNvflOWkWWF6tYqyy3G7 bGVzaGVldHtcZjBcZnMy YrJZo1GiFJm9cXldR3Cg XUUmHfK5yUFhWWKuQYvu JDNqBVEadfH0iT39WLto qpZ7dYWal5Ejl23pv658 oF3hxJZiBSQ4WYEbCXTo fUYrSWRvOEP3WFEtmGCq J3gqTNEtZO7ltasrIAyu OTyrSYLddCR3ZXElvDCb U7PmOATkMRgdEOElyhg1 GhDjBu9rgHAdmUtrWAku b5tde6lfeONwNql9LSRh EsNmTnbaATivd1Leh5jp OSPdby7vDWL2pEXgcXge c4T1wAPuHWGxvZAgomCy JXVyFeS8VMwqVB7zzu59 UOUhEDM2ll3giSKifBnm tuDmnPJfTGzrA9LxRUKe u679DVHrH6JqWTCgt6F9 ddUhVdDeBRWfnYN6lrZ7 MYSeSMg1cCCjimU7ppJb aOYyH9kedW2eZRMpNJ8c xsask4ylJPfiLQdeZMZl cQS6yoC2FXNmhOYjO9Rj yJ7vXFJvKTtgXPXnlgu8 IgPbNj6zrIVhlZvyACyy YmtwYWdlXHBnbmNvbnRc cGduZGVjXHBsYWluXHBs YWluXGYwXGZzMjRccWxc nCdvcH9cReDdAoUgUjji WV7uNIMeD6bnwQJwFPWr IIMlC0xwIoQogO7lpOxd ZSunfoX4LGVhWGQBPQCw R31iCPIblBDcOGJpI2Ky UL8bzfqfoZEqxLAbx5Km P7AfmbenPAcdD6QtB5Th RnMoAvCpm7WuixMzAARp ycIeywCdpRv1raMhM7L8 tqV4jXHaPKVpxVHzN6Nh TQ3sbspfsINwpUKlLKCn oDbxy3z1vE0sUVAxRCMs ZWVkIGZvciByZXNjcmVl killAyCghOYdIXTtwQ8a bmRlZCBpbnRlcnZhbHMs IGFuZCBjbGluaWNhbCBj n4WuVXmpvTbxna7yaPif eG1zAkWoHdYnPafxLP4y DYMnL7mrjRMzLEEqOZHi H7bmOaUmuN7ubInjTNxr bpIuUVFvxp64 [facility] PAP Slot Shift Supervisor Comment a8tpkXStBOKwc9ksJYJr bGFuZzEwMzNcZnRuYmpc bGBaZMefayOmKXccx5Gf F3KaUxKsGMogecGnGFNa SgobyhcuGBPkIZR9xeQv CNPdADflVPScMMcyOn7n eCEkkFwpZnEhGTYrz0dh ogEHretegHp2t9hsCTKd UlK1xSXrGNhqO7mvcjMc vQDrEXExYOu3eU36QUPs gB3whAGaTRvxfcAoUqO8 PSfqDSAcIuK8WBNxyRVn JBPlT0vbTOQvBFfvAWDb GXdwaMOzHRO8aUocz3Y0 bGVzaGVldHtcZjBcZnMy XvUTi3ApAZf4zYneQ7Ke UTOhHtC0mPEeYLWrXPhl ZVOyTUFvenA7aR81PKdi ghJ5qHOxc1Cvg42fo580 sQ5kxFDjFOG7HVNcKQLa mGPbOQNmRTY1TLRfgFCl C4hlXIVwPG6wpdddYPar MCsiKRJsjCD0KIBypVXp U3TqXTXkVSloAXTvzyz4 YiZkVs2tySOelNqeTKou x5bhe3yzzQMjWtv7ZOXp ZmWxTcwzWWewe0Iyh7ay DAYtfd0gODC0kCGatAhk k5L1zDYoZDRatTLwdpPk HUEqAcD8EMumAF9nvd72 IFTpKHU4nv6jhQHpiPls ekKydQTyZZilX6WeOIIw a602UBZzQ0EeMXTum1R9 xdPjMfHoGPVktFM0cqA9 JVRgAHl0vZVcekF1xbJk mPAiI9vtmL8oDFDkBG3l mpyow7prOYshSDrqAKJs mQX8ikL9TQVfqLAwA4Pr pR8sTQVjOCugPECssbd0 JmKvIj6lnRDevBfzMGyi YmtwYWdlXHBnbmNvbnRc cGduZGVjXHBsYWluXHBs YWluXGYwXGZzMjRccWxc tNkomS1jWmSjOcXiPpqf BI6bIQJfX5uvwNSyADTn IKZhU2xgUvFoqA0pzUif DEbdhtC1VBauWQzrtxMj mKNjfK3nyrViIIWbNpGq biBhbmFseXplZCBieSB0 nRXgPGdiiqFlYOZpAX5a M4rsGiHUuAQ8PV5rVWPb UJA0iM5hQNPsAOMqmAKg sL7vSIHnJHSxATNjLLzm x5hzuTElUYC1tOsrgBBp f9Ajq3PzBQRuOMXgOSLa xyB0c7F0JZpgEJE4FBi2 JCPhwiswV6VahKZds22j VGhpblByZXAgUGFwIHRl t9HzXmNaEj2agF21fK8j KAT2fX7bFMRcRPNldARx sL7gKRYxBMfgL9WsYDDq aWVsZHMgZnJvbSBldmVy eSBzbGlkZSBhcmUgcmV2 oBW7NCWpBqsjWEAgkEPn bQQfqM1ztQ4fuUA6Jwqh bGFpblxmMVxmczIyXGxh pzwvMZQqQAtbS5qcTrHj GJIabAdyPDpfj5JyIWSv XGZzMjJccGFyfX0= [facility] Performing Lab k1uxzXBhWMIke2fkTDIa bGFuZzEwMzNcZnRuYmpc dWMxIHtccnRmMVxhbnNp XGRlZmxhbmcxMDMzXGZ0 pkSaDTOjOZB0QQC6SgYe n2G2SFYpOfMvOXYrSO5k xUdzXNUpIP6jODBkZ7bj fI8btri5TzJuAFZrGfW8 PEJbcfN6Dcs9BIVeRJlg w3bvn1XsXGWeSXp2rOek FjBaVICyo0gjgrZqXkDd FCHwBATtAAHkvECzC490 g3kjm7lghpNxlAE7OLCo KPT0DAhsqbUxizY4FHqi jLKfBgX7ZHubfvHnTJlq peZbxkHyZwv5QKWdG726 HJJ2zNxzi9csRXL3ASMz MIScEgDvSo3tfXRxH991 MORyXBLDJRYqzYo9MQQz jqXkiqUtvXYYq545I567 u8yqFDJqhtIwkRrNdree r4yfM238RVPcaHDhgfPv JkPmOGEodWWumZW2HFMj OV0dobvaJAdbNAwdIKFm wiY4TGKfhFMrV4DqXHSc NM2tyroxUQY8TIvaJJFn CLL5NbOwAUFkn4Xferi7 XtJsfd1oyg05JWP1g1Ev kFgnNHM4CIZ2PbNzTk6y eNJtIEBsNM8pFoIcnDLk OZPezx86jGuuBLuzxtEb hE8wBtOtQLUzhVClRIFk RI6ddFFlTCWvyO8vhdxm XHBnYnJkcmhlYWRccGdi ugLjCi8dbFlvZHS8KBkv D2qygC5kXjS9KXcsM2sq sZ8dBQm5JKjjePS1HREd lM4gDJ7mymdsc8ujTJew LRtfUIDdhwF1ehM6IRKb tNAmW7FjyU8nJOLnJZ1q houxb1pcZRM2ABgxCWVb CDU3RxEbYLTjh2Vgjrs4 XiOwv9YsxXInATimP58h l521YHRvsbAlD9zmySDi blxwbGFpblxmMFxmczI0 XHFsXHBsYWluXGYxXGZz MjJcbGFuZzEwMzNcaGlj aFxmMVxkYmNoXGYxXGxv H8sjPrHoJfHsBmLJAVYp cbksXKhaW23dqJ7xCA83 ESBrsZMseEAnwZ1umU2x cEE5DMRhxwCixfjnVbJy KNAfn6IyUFFrIGCdB0he uvJfWS9aTQMcsP0kMcmf OTUwMCBFdWNsaWQgQXZl WJGSaAV9DAsfphWfV2hg NDQxOTUgICBDTElBIyAz AuDpVlA4QWy8HLYaay54 x4pyiQJxKOXxeMXzCzEd ZWKcIZAwb9kxNIWegZWm ZzEwMzNcZnRuYmpcdWMx KSOtDrXwi7gte598vUKm f2zxVBHdKoM7zVHkSGZe kJXjG884NZNgSUsjk9tt n1OkJUUywRYfe9N4BHSQ mrrblHn5oVxcD80ur9M0 LpwcK0czZQSpXCEkO8Dm IF4kWJVmXoa7BLF0BNY5 XIFkTLUdR4QkND6bMJGu mSEbAYn5r6yptAlsUZJd VBG4i8gbZBjqqmDpYT5p pz5ktQw9o4hjqlDlRGVu FLRzoDYRJMShZ4XcrXij Xw3nuQm4aHcsQxvzKIS6 Uxf6WP5jid11kxr4bFvd LQCrkyjbIsY3JZsaFJPa dnxyCZs4HPjyNTCsgLT5 JKPqbJBzK3NvSLcyZC6g thx6RCA7YRwqHQRoKxL5 NDBcaGVhZGVyeTcyMFxm g910IYY9WgEiCL3xF6Ax l3W6gC5rpPCjTMEhiGDa OvZxEAKsnw6qkXYfHSwa k0YbFCN9xdP2nDWlfHHb VPRtSO72Buhcr1VnXosc m5MiF95kySJ6HYsqa0xi OC1mZlF6rcScTKdsi2ce xA6rXbD0PDthQE5rMN2j MSLuoI6wmxlyDREeWuJu cckwBNAfmJwanvLoSk1g xWmqVXH5BKbnL5rqdZ4f DlK6OYdcW9cfaO8vEVr5 MZcykNP5ATYfxO8wGC2b tofvy4nbGIkjQKjxQJCc jbF4esWiBRXbdPQgV9Wz dM7tMVNcIP3xejojf8bl MVX5ITdbDIWcYRH0KaQr ZUZup0Vlwpa4HcRwq1Oe oNXxCCbeY83gf782CHHh kaHzD7jnlPUmzagyqSNg vtjzBBsbntS2YLMxHWXu YWluXGYxXGZzMjBcbGFu ZzEwMzNcaGljaFxmMVxk VgXxXFTcWNqiL0tlOkLd LbCfVPROpTXjxm2cjUed BCixgXFnhOQheTC6hK5g SUMlpbIvnj3eWNShkGSD eFF3YHtrnqDnT5ygnwoy YMM1XCJaXYZ3N1jkYIGU dmUsIENsZXZlbGFuZCBP YVH7CXE1YIAfZWILTSTs TCD5DZP2XZVeITRhqPBc XHBhclxwYXJkXHBsYWlu AFPpJUQjIyLplTtraY8i KuDhCqNnOEtaIZ8zYINb U2lbjYPiPMHxNXUrG7tl XkRvdZ3adJvdVLmrBiPs ZnMyMFxsdHJjaCBMYWJv wxO8g3C7WMcszXMjnszn MVxmczIwXGxhbmcxMDMz BFcrU4gaGkHbBTAijZzv ODjdg7WoSESkOIWqTnLt SYhjPTP7f6M9NDyabFMf rxTZWiTYKY4drCScrvre XI3KOdppwVZzfzmaYFof czIyXGxhbmcxMDMzXGhp B6ltJpDiROSkiNvbAYiy w9NbUAEsWXUaHtRwwDRa fX0= [facility] Specimen Adequacy Satisfactory for interpretation. Transformation zone present [facility] CNOVon 04-04-2024 CNOV Office Visit (OBGYWM) ELIAZARYULIANA M ([id number]) 1955 F Date Time Provider Department 04/04/24 2:00 PM TIRSO VARGAS During your visit today, we recorded the following information about you: Blood pressure Weight Height Last Period 128/80 94.8 kg 1.575 m 02/15/1998 Tirso Vargas APRN.CNM 04/11/2024 12:00 PM Signed Yuliana is a 68 year old who presents for an annual gynecologic exam. Feeling like there is something down there Soreness, no pain but uncomfortable. Has felt this since 11/08. Postmenopausal: Yes since 2011 HRT use: No. Still get period: No Menopause symptoms: None for 26 years, not sexually active in last 10 years. had prostate cancer. control frequency: Never HPV vaccine: Unsure; Last pap smear: 09/16/2015 History of abnormal pap: No, all prior PAP smears have been normal Bothersome pelvic pain: No Last mammogram: 2023 normal (gets them at [facility]) History of abnormal mammogram: No - just dense Colonoscopy 2007 DEXA done but uncertain of date. 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 History Comments: Sexual Activity: Not Currently; No partner data on record Contraception: None PAST MEDICAL HISTORY Diagnosis Date Abdominal pain, unspecified site Abdominal pain, unspecified site Diarrhea Diarrhea Essential hypertension, benign External hemorrhoids without mention of complication Internal hemorrhoids without mention of complication Lumbago Obesity, unspecified Unspecified disorder of thyroid Unspecified symptom associated with female genital organs PAST SURGICAL HISTORY Procedure Laterality Date COLONOSCOPY W/BIOPSY SINGLE/MULTIPLE 12/26/07 PAST SURGICAL HISTORY OF breast lump removed benign FAMILY HISTORY Problem Relation Age of Onset Alzheimer's Disease Father Breast Cancer Paternal Grandmother 53 Breast Cancer Daughter SOCIAL HISTORY Social History Tobacco Use Smoking status: Never Smokeless tobacco: Never Substance Use Topics Alcohol use: Not Currently Drug use: Never REVIEW OF SYSTEMS Abdomen: No abdominal pain, nausea, vomiting, diarrhea, or constipation. No bloating, early satiety, indigestion, or increased flatulence. Bladder: No dysuria, gross hematuria, urinary frequency, urinary urgency, or incontinence Breast: No breast lumps, nipple d/c, overlying skin changes, redness or skin retraction Allergies and current medication updated:Yes SENSITIVE EXAM: The sensitive examination was discussed with the Patient or Patient's Authorized Speech Coach. As applicable, any other physician, advance practice provider, medical student, or other health professional student that will be observing or involved in the sensitive examination for educational or training purposes was discussed with the Patient or Authorized Speech Coach. The Patient or Authorized Speech Coach has agreed to proceed with the sensitive examination. (Sensitive examination includes inspection and/or palpation of the breasts, pelvis, prostate and anorectal regions). EXAM: BP 128/80 Ht 5' 2 (1.58m) Wt 209 lb (94.8kg) LMP 02/15/1998 BMI 38.22 kg/(m2). GENERAL: pleasant, female in no apparent distress HEENT: Normocephalic, atraumatic, mucus membranes moist, and no lesions NECK: Supple, full range of motion, no adenopathy, and thyroid normal DERMATOLOGY: Normal, without lesions, non-icteric, and non-hirsute BREAST: soft, non-tender, symmetric, no dominant mass, normal nipple-areolar complex, no lymphadenopathy, and no nipple discharge CHEST: Normal inspiratory effort ABDOMEN: soft, non-tender, and no masses PELVIC: external genitalia normal, normal Bartholin's glands, urethra, Chula's glands, no vulvar lesions, no cervical lesions, good vaginal support, physiologic discharge present, normal appearing perineal body and perianal region. BIMANUAL: uterus normal size, shape and consistency, no adnexal masses, and non-tender RECTOVAGINAL: deferred. NEURO: alert and oriented x3,exam grossly non-focal EXTREMITIES: normal ASSESSMENT/PLAN: 1. Encounter for gynecological examination with abnormal finding - ICD9: V72.31, ICD10: Z01.411 (primary diagnosis) - Completed pelvic and breast exam - Encouraged monthly BSE - Follow up for annual exam in one year. - GEOVANI SCREENING W CHRISTO - PAP TEST - HIGH RISK HUMAN PAPILLOMA VIRUS (HPV), PCR FOR DETECTION AND GENOTYPING 2. Encounter for screening for human papillomavirus (HPV) - ICD9: V73.81, ICD10: Z11.51 - PAP TEST - HIGH RISK HUMAN PAPILLOMA VIRUS (HPV), PCR FOR DETECTION AND GENOTYPING 3. Pap smear for cervical cancer screening - ICD9: V76.2, ICD10: Z12.4 (more content not included)... Normal [facility] HIGH RISK HUMAN PAPILLOMA SHANTHI (HPV), PCR FOR DETECTION AND GENOTYPINGon 04-04-2024 HPV 16 Ag Ql (Unsp spec) Not detected Normal Not detec koby [facility] Comment on above: Order Comment: Speci men Type: FLUID SPECIMEN Ordering Facility: [facility] Address: [address], [place] [address] Performed By: #### H PVHRT #### [facility] CLIA [id number] [address] [place] [address] [place] HPV 18 Ag Ql (Unsp spec) Not detected Normal Not detec koby [facility] Comment on above: Order Comment: Speci men Type: FLUID SPECIMEN Ordering Facility: [facility] Address: [address] [place] [address] Performed By: #### H PVHRT #### [facility] CLIA [id number] [address] [place] [address] [place] HPV 31+33+35+39+45+51+52+56+ 58+59+66+68 DNA JENNIFER+probe Ql (Cvx) Not detected Normal Not detected [facility] Comment on above: Order Comment: Speci men Type: FLUID SPECIMEN Ordering Facility: [facility] Address: [address] [place] [address] Result Comment: High Risk HPV Other Type includes HPV types 31, 33, 35, 39, 45, 51, 52, 56, 58, 59, 66 and 68. Performed By: #### H PVHRT #### [facility] CLIA [id number] [address] [place] [address] [place] PAP TESTon 04-04-2024 ADEQUACY Normal [facility] Comment on above: Order Comment: Speci men Type: FLUID SPECIMEN Ordering Facility: [facility] Address: [address] [place] [address] Result Comment: Sati sfactory for interpretation. Transformation zone present Performed By: #### L [id number] #### [facility] CLIA [id number] [address] [place] [address] [place] CASE REPORT Normal [facility] Comment on above: Order Comment: Speci men Type: FLUID SPECIMEN Ordering Facility: [facility] Address: [address] [place] [address] Result Comment: Gyne cologic Cytology Report Case: [id number] Authorizing Provider: Tirso Vargas APRN.CNM Collected: 04/04/2024 02:44 PM Ordering Location: OB/Gynecology Received: 04/04/2024 04:16 PM First Screen: Hardeep Joiner Tech Specimen: Pap Test, ThinPrep, Cervix Performed By: #### L [id number] #### [facility] CLIA [id number] [address] [place] [address] [place] CLINICAL HISTORY, CYTOLOGY, CREDIT REPORT CHECKER Routine Exam Normal [facility] Comment on above: Order Comment: Speci men Type: FLUID SPECIMEN Ordering Facility: [facility] Address: [address] [place] [address] Performed By: #### L [id number] #### [facility] CLIA [id number] [address] [place] [address] [place] FINAL PERFORMING LAB Normal [place] Comment on above: Order Comment: Speci men Type: FLUID SPECIMEN Ordering Facility: [facility] Address: [address] [place] [address] Result Comment: Lj nical component, cook fish eggs screening performed at [facility], [address] [place], [place] [id number] CLIA# [id number] Diagnostic interpretation performed at [facility], [address] [place], [place] [address] CLIA# [id number] [employer] Former: Hernando Jackson M.D. Performed By: #### L [id number] #### [facility] CLIA [id number] [address] [place] [address] [place] INTERPRETATION, CYTOLOGY, CREDIT REPORT CHECKER Normal [facility] Comment on above: Order Comment: Speci men Type: FLUID SPECIMEN Ordering Facility: [facility] Address: [address] [place] [address] Result Comment: Nega tive for intraepithelial lesion or malignancy. at 1446 EST Performed By: #### L [id number] #### [facility] CLIA [id number] [address] [place] [address] [place] LMP 02/15/1998 Normal [facility] Comment on above: Order Comment: Speci men Type: FLUID SPECIMEN Ordering Facility: [facility] Address: [address] [place] [address] Performed By: #### L [id number] #### [facility] CLIA [id number] [address] [place] [address] [place] PAP DISCLAIMER COMMENT The Pap Smear is a screening test for cervical cancer. False negative results occur with all screening tests, emphasizing the need for rescreening at recommended intervals, and clinical correlation. Normal [facility] Comment on above: Order Comment: Speci men Type: FLUID SPECIMEN Ordering Facility: [facility] Address: [address] [place] [address] Performed By: #### L [id number] #### [facility] CLIA [id number] [address] [place] [address] [place] PAP STAFF TRAINER COMMENT This specimen has been analyzed by the ThinPrep Imaging System, an automated imaging and review system, which assists the laboratory in evaluating cells on ThinPrep Pap tests. Following automated imaging, selected herrera from every slide are reviewed by a cook fish eggs. Normal [facility] Comment on above: Order Comment: Speci men Type: FLUID SPECIMEN Ordering Facility: [facility] Address: [address] [place] [address] Performed By: #### L [id number] #### [facility] CLIA [id number] [address] [place] [address] [place] CBC W/Diff, Automatedon 09-15 Absolute Lymph 1.16 X10 3/uL Normal 0.83-4.51 [facility] Comment on above: Order Comment: Order Date: 09/30/23 Order Info: 0184-1 - CBCD Performed By: #### L 506.1000, L501.9520, L500.4100, L100.0100, L500.4050 #### [facility] [address] [place], [address] Absolute Neut 5.1 X10 3/uL Normal 2.0-7.7 [facility] Comment on above: Order Comment: Order Date: 09/30/23 Order Info: 018- - CBCD Performed By: #### L 506.1000, L501.9520, L500.4100, L100.0100, L500.4050 #### [facility] [address] [place], [address] Basophils/100 WBC (Bld) 0.7 % Normal 0-1 [facility] Comment on above: Order Comment: Order Date: 09/30/23 Order Info: 018- - CBCD Performed By: #### L 506.1000, L501.9520, L500.4100, L100.0100, L500.4050 #### [facility] [address] [place], [address] Eosinophils/100 WBC (Bld) 1.3 % Normal 0-5 [facility] Comment on above: Order Comment: Order Date: 09/30/23 Order Info: 018- - CBCD Performed By: #### L 506.1000, L501.9520, L500.4100, L100.0100, L500.4050 #### [facility] [address] [place], [address] Erythrocyte distribution width (RBC) [Ratio] 12.3 % Normal 11.6-14.6 [facility] Comment on above: Order Comment: Order Date: 09/30/23 Order Info: 018-1 - CBCD Performed By: #### L 506.1000, L501.9520, L500.4100, L100.0100, L500.4050 #### [facility] [address] [place], [address] Hematocrit (Bld) [Volume fraction] 44.1 % Normal 37-47 [facility] Comment on above: Order Comment: Order Date: 09/30/23 Order Info: 0184-1 - CBCD Performed By: #### L 506.1000, L501.9520, L500.4100, L100.0100, L500.4050 #### [facility] [address] [place], [address] Hemoglobin (Bld) [Mass/Vol] 13.9 g/dL Normal 12.0-15.0 [facility] Comment on above: Order Comment: Order Date: 09/30/23 Order Info: 0184-1 - CBCD Performed By: #### L 506.1000, L501.9520, L500.4100, L100.0100, L500.4050 #### [facility] [address] [place], [address] IG% 0.400 Normal 0.0-0.9 [facility] Comment on above: Order Comment: Order Date: 09/30/23 Order Info: 0184-1 - CBCD Result Comment: IG% - Immature Granulocytes (promyelocytes, myelocytes and metamyelocytes) > 1% indicates that a LEFT SHIFT is Present. Performed By: #### L 506.1000, L501.9520, L500.4100, L100.0100, L500.4050 #### [facility] [address] [place], [address] Lymphocytes/100 WBC (Bld) 16.8 % Low 19-41 [facility] Comment on above: Order Comment: Order Date: 09/30/23 Order Info: 0184-1 - CBCD Performed By: #### L 506.1000, L501.9520, L500.4100, L100.0100, L500.4050 #### [facility] [address] [place], [address] MCH (RBC) [Entitic mass] 30.0 pg Normal 27.0-32.0 [facility] Comment on above: Order Comment: Order Date: 09/30/23 Order Info: 0184-1 - CBCD Performed By: #### L 506.1000, L501.9520, L500.4100, L100.0100, L500.4050 #### [facility] [address] [place], [address] MCHC (RBC) [Mass/Vol] 31.5 g/dL Low 32-36 [facility] Comment on above: Order Comment: Order Date: 09/30/23 Order Info: 0184-1 - CBCD Performed By: #### L 506.1000, L501.9520, L500.4100, L100.0100, L500.4050 #### [facility] [address] [place], [address] MCV (RBC) [Entitic vol] 95.0 fL Normal 81-99 [facility] Comment on above: Order Comment: Order Date: 09/30/23 Order Info: 0184-1 - CBCD Performed By: #### L 506.1000, L501.9520, L500.4100, L100.0100, L500.4050 #### [facility] [address] [facility] [place], [address] Monocytes/100 WBC (Bld) 7.1 % Normal 0-10 [facility] Comment on above: Order Comment: Order Date: 09/30/23 Order Info: 0184-1 - CBCD Performed By: #### L 506.1000, L501.9520, L500.4100, L100.0100, L500.4050 #### [facility] [address] [place], [address] Neutrophils/100 WBC (Bld) 73.7 % High 47-70 [facility] Comment on above: Order Comment: Order Date: 09/30/23 Order Info: 0184-1 - CBCD Performed By: #### L 506.1000, L501.9520, L500.4100, L100.0100, L500.4050 #### [facility] [address] [place], [address] Nucleated RBC (Bld) [#/Vol] 0 10*3/uL Normal 0-5 [facility] Comment on above: Order Comment: Order Date: 09/30/23 Order Info: 0184-1 - CBCD Performed By: #### L 506.1000, L501.9520, L500.4100, L100.0100, L500.4050 #### [facility] [address] [place], [address] Platelet mean volume (Bld) [Entitic vol] 10.2 fL Normal 6.2-12.0 [facility] Comment on above: Order Comment: Order Date: 09/30/23 Order Info: 0184- - CBCD Performed By: #### L 506.1000, L501.9520, L500.4100, L100.0100, L500.4050 #### [facility] [address] [place], [address] Platelets (Bld) [#/Vol] 342 10*3/uL Normal 150-450 [facility] Comment on above: Order Comment: Order Date: 09/30/23 Order Info: 0184- - CBCD Performed By: #### L 506.1000, L501.9520, L500.4100, L100.0100, L500.4050 #### [facility] [address] [place], [address] RBC (Bld) [#/Vol] 4.64 10*6/uL Normal 4.2-5.4 [facility] Comment on above: Order Comment: Order Date: 09/30/23 Order Info: 0184-1 - CBCD Performed By: #### L 506.1000, L501.9520, L500.4100, L100.0100, L500.4050 #### [facility] [address] [place], [address] RDW SD 42.8 fl Normal 35.1-43.9 [facility] Comment on above: Order Comment: Order Date: 09/30/23 Order Info: 0184-1 - CBCD Performed By: #### L 506.1000, L501.9520, L500.4100, L100.0100, L500.4050 #### [facility] [address] [place], [place], [address] WBC (Bld) [#/Vol] 6.9 10*3/uL Normal 4.4-11.0 [facility] Comment on above: Order Comment: Order Date: 09/30/23 Order Info: 0184-1 - CBCD Performed By: #### L 506.1000, L501.9520, L500.4100, L100.0100, L500.4050 #### [facility] [address] [place], [place], [address] Comprehensive Metabolic Prof [facility] 09-30-2023 Albumin [Mass/Vol] 3.4 g/dL Normal 3.2-5.0 [facility] Comment on above: Order Comment: Order Date: 09/30/23 Order Info: 0786-1 - CMP Order Info: [id number] - LIPID Order Info: 3016-3 - TSH Performed By: #### L 506.1000, L501.9520, L500.4100, L100.0100, L500.4050 #### [facility] [address] [place], [address] Albumin/Globulin [Mass ratio] 0.9 {ratio} Normal 0.9-2.4 [facility] Comment on above: Order Comment: Order Date: 09/30/23 Order Info: 0786-1 - CMP Order Info: [id number] - LIPID Order Info: 3016-3 - TSH Performed By: #### L 506.1000, L501.9520, L500.4100, L100.0100, L500.4050 #### [facility] [address] [place], [address] ALK P 111 U/L Normal 45-117 [facility] Comment on above: Order Comment: Order Date: 09/30/23 Order Info: 785-02 - CMP Order Info: [id number] - LIPID Order Info: [id number] - TSH Performed By: #### L 506.1000, L501.9520, L500.4100, L100.0100, L500.4050 #### [facility] [address] [place], [address] ALT [Catalytic activity/Vol] 99 U/L High 13-56 [facility] Comment on above: Order Comment: Order Date: 09/30/23 Order Info: 785-02 - CMP Order Info: [id number] - LIPID Order Info: [id number] - TSH Performed By: #### L 506.1000, L501.9520, L500.4100, L100.0100, L500.4050 #### [facility] [address] [place], [address] AST [Catalytic activity/Vol] 67 U/L High 15-37 [facility] Comment on above: Order Comment: Order Date: 09/30/23 Order Info: 785-02 - CMP Order Info: [id number] - LIPID Order Info: [id number] - TSH Performed By: #### L 506.1000, L501.9520, L500.4100, L100.0100, L500.4050 #### [facility] [address] [place], [address] Bilirubin [Mass/Vol] 0.40 mg/dL Normal 0.20-1.00 [facility] Comment on above: Order Comment: Order Date: 09/30/23 Order Info: 785- - CMP Order Info: [id number] - LIPID Order Info: 3015-04 - TSH Result Comment: For patients on eltrombopag therapy, use of Dimension Ursa TBIL is not recommended. Performed By: #### L 506.1000, L501.9520, L500.4100, L100.0100, L500.4050 #### [facility] [address] [place], [address] BUN/CRE 16.8 RATIO Normal 10-20 [facility] Comment on above: Order Comment: Order Date: 09/30/23 Order Info: 785- - CMP Order Info: - LIPID Order Info: 3 - TSH Performed By: #### L 506.1000, L501.9520, L500.4100, L100.0100, L500.4050 #### [facility] [address] [place], [address] CA,Total 9.1 mg/dL Normal 8.5-10.1 [facility] Comment on above: Order Comment: Order Date: 09/30/23 Order Info: 785-02 - CMP Order Info: - LIPID Order Info: [id number] - TSH Performed By: #### L 506.1000, L501.9520, L500.4100, L100.0100, L500.4050 #### [facility] [address] [place], [address] Chloride [Moles/Vol] 106 mmol/L Normal 98-107 [facility] Comment on above: Order Comment: Order Date: 09/30/23 Order Info: 785-02 - CMP Order Info: [id number] - LIPID Order Info: [id number] - TSH Performed By: #### L 506.1000, L501.9520, L500.4100, L100.0100, L500.4050 #### [facility] [address] [place], [address] CO2 [Moles/Vol] 27.0 mmol/L Normal 21.0-32.0 [facility] Comment on above: Order Comment: Order Date: 09/30/23 Order Info: 785- - CMP Order Info: [id number] - LIPID Order Info: [id number] - TSH Performed By: #### L 506.1000, L501.9520, L500.4100, L100.0100, L500.4050 #### [facility] [address] [place], [address] Creatinine [Mass/Vol] 0.89 mg/dL Normal 0.55-1.02 [facility] Comment on above: Order Comment: Order Date: 09/30/23 Order Info: 0786-1 - CMP Order Info: [id number] - LIPID Order Info: 3016-3 - TSH Result Comment: The validity of the calculated GFR GFRAA in patients over 70 years has not been determined. Clinical correlation is essential. Performed By: #### L 506.1000, L501.9520, L500.4100, L100.0100, L500.4050 #### [facility] [address] [place], [address] EST GFR - AA 81 mL/min Normal >60 [facility] Comment on above: Order Comment: Order Date: 09/30/23 Order Info: 0786- - CMP Order Info: [id number] - LIPID Order Info: 3016-3 - TSH Result Comment: Afri can [place]ese GFR Calc Performed By: #### L 506.1000, L501.9520, L500.4100, L100.0100, L500.4050 #### [facility] [address] [place], [address] GAP 7 Normal 5-15 [facility] Comment on above: Order Comment: Order Date: 09/30/23 Order Info: 0786-1 - CMP Order Info: [id number] - LIPID Order Info: 3016-3 - TSH Performed By: #### L 506.1000, L501.9520, L500.4100, L100.0100, L500.4050 #### [facility] [address] [place], [address] GFR/1.73 sq M.predicted among non-blacks MDRD (S/P/Bld) [Vol rate/Area] 67 mL/min/{1.73_m2} Normal >60 [facility] Comment on above: Order Comment: Order Date: 09/30/23 Order Info: [id number] - CMP Order Info: - LIPID Order Info: [id number] - TSH Result Comment: Non- GFR Calc Performed By: #### L 506.1000, L501.9520, L500.4100, L100.0100, L500.4050 #### [facility] [address] [place], [address] Globulin (S) [Mass/Vol] 3.9 g/dL Normal 2.2-4.2 [facility] Comment on above: Order Comment: Order Date: 09/30/23 Order Info: [id number] - CMP Order Info: - LIPID Order Info: [id number] - TSH Performed By: #### L 506.1000, L501.9520, L500.4100, L100.0100, L500.4050 #### [facility] [address] [place], [address] Glucose [Mass/Vol] 92 mg/dL Normal 74-106 [facility] Comment on above: Order Comment: Order Date: 09/30/23 Order Info: 785-02 - CMP Order Info: [id number] - LIPID Order Info: [id number] - TSH Performed By: #### L 506.1000, L501.9520, L500.4100, L100.0100, L500.4050 #### [facility] [address] [place], [address] Potassium [Moles/Vol] 4.0 mmol/L Normal 3.5-5.1 [facility] Comment on above: Order Comment: Order Date: 09/30/23 Order Info: 07 - CMP Order Info: - LIPID Order Info: [id number] - TSH Performed By: #### L 506.1000, L501.9520, L500.4100, L100.0100, L500.4050 #### [facility] [address] [place], [address] Sodium [Moles/Vol] 140 mmol/L Normal 136-145 [facility] Comment on above: Order Comment: Order Date: 09/30/23 Order Info: [id number] - CMP Order Info: [id number] - LIPID Order Info: 3 - TSH Performed By: #### L 506.1000, L501.9520, L500.4100, L100.0100, L500.4050 #### [facility] [address] [place], [address] T PROT 7.3 g/dL Normal 6.4-8.2 [facility] Comment on above: Order Comment: Order Date: 09/30/23 Order Info: [id number] - CMP Order Info: - LIPID Order Info: [id number] - TSH Performed By: #### L 506.1000, L501.9520, L500.4100, L100.0100, L500.4050 #### [facility] [address] [place], [address] Urea nitrogen [Mass/Vol] 15 mg/dL Normal 7-18 [facility] Comment on above: Order Comment: Order Date: 09/30/23 Order Info: [id number] - CMP Order Info: - LIPID Order Info: 3 - TSH Performed By: #### L 506.1000, L501.9520, L500.4100, L100.0100, L500.4050 #### [facility] [address] [place], [address] Lipid Profileon 09-30-2023 Cholesterol [Mass/Vol] 199 mg/dL Normal 200 [facility] Comment on above: Order Comment: Order Date: 09/30/23 Order Info: [id number]- - CMP Order Info: - LIPID Order Info: 3 - TSH Result Comment: <200 mg/dL Desirable 200-240 mg/dL Borderline >240 mg/dL High Risk Performed By: #### L 506.1000, L501.9520, L500.4100, L100.0100, L500.4050 #### [facility] [address] [place], [address] Cholesterol in HDL [Mass/Vol] 66 mg/dL Normal [facility] Comment on above: Order Comment: Order Date: 09/30/23 Order Info: [id number]- - CMP Order Info: [id number] - LIPID Order Info: 3 - TSH Result Comment: The drugs N-Acetylcysteine and Metamizole may falsely depress this assay. Reference Range HDL <40 mg/dL Low HDL Cholesterol HDL >or= 60 mg/dL High HDL Cholesterol Performed By: #### L 506.1000, L501.9520, L500.4100, L100.0100, L500.4050 #### [facility] [address] [place], [address] Cholesterol in LDL [Mass/Vol] 106 mg/dL Normal 0-130 [facility] Comment on above: Order Comment: Order Date: 09/30/23 Order Info: [id number] - CMP Order Info: [id number] - LIPID Order Info: [id number] - TSH Performed By: #### L 506.1000, L501.9520, L500.4100, L100.0100, L500.4050 #### [facility] [address] [place], [address] Cholesterol in VLDL [Mass/Vol] 27 mg/dL Normal 5-40 [facility] Comment on above: Order Comment: Order Date: 09/30/23 Order Info: [id number] - CMP Order Info: [id number] - LIPID Order Info: [id number] - TSH Performed By: #### L 506.1000, L501.9520, L500.4100, L100.0100, L500.4050 #### [facility] [address] [place], [address] Triglyceride [Mass/Vol] 137 mg/dL Normal [facility] Comment on above: Order Comment: Order Date: 09/30/23 Order Info: [id number] - CMP Order Info: [id number] - LIPID Order Info: [id number] - TSH Result Comment: The drugs N-Acetylcysteine and Metamizole may falsely depress this assay. Serum Triglycerides Reference Interval Normal <150 mg/dL Borderline high 150 - 199 mg/dL High 200 - 499 mg/dL Very High > or = 500 mg/dL Performed By: #### L 506.1000, L501.9520, L500.4100, L100.0100, L500.4050 #### [facility] [address] [place], [address] Thyroid Stim Hormone (TSH)on 09-30-2023 TSH 3.030 uIU/mL Normal 0.358-3.740 [facility] Comment on above: Order Comment: Order Date: 09/30/23 Order Info: [id number] - CMP Order Info: [id number] - LIPID Order Info: [id number] - TSH Performed By: #### L 506.1000, L501.9520, L500.4100, L100.0100, L500.4050 #### [facility] [address] [place], [place], [address] Vitamin D,25 Hydroxyon 09-29 Vitamin D 25-OH 32.9 ng/mL Normal [facility] Comment on above: Order Comment: Order Date: 09/30/23 Order Info: [id number] - VITD25 Result Comment: Bailey min D 25(OH) Status Range Deficiency <20 ng/mL (50nmol/L) Insufficiency 20 - 30 ng/mL (50 - 75 nmol/L) Sufficiency 30 - 100 ng/mL (75 - 250 nmol/L) Toxicity >100 ng/mL (>250 nmol/L) Performed By: #### L 506.1000, L501.9520, L500.4100, L100.0100, L500.4050 #### [facility] [address] [place], [address] Basophil percentageOrdered B y: Ivonne Chang on 03-08-2023 Basophil percentage < 1.0 mg/dL 0.55-1.02 [facility] - Chemistry and C hemistry - challengeOrdered By: Ivonne Chang on 03-08-2023 GFR/1.73 sq M.predicted among non-blacks MDRD (S/P/Bld) [Vol rate/Area] 57.0000 mL/min/{1.73_m2} >60 [facility] Basophil percentageOrdered B y: Jenifer Rawls on 04-23-2022 Bilirubin [Mass/Vol] 0.60 mg/dL 0.20-1.00 [facility] Comment on above: For patients on eltr ombopag therapy, use of Dimension Ursa TBIL is not recommended. Chloride [Moles/Vol] 107 mmol/L 98-107 [facility] Cholesterol [Mass/Vol] 229 mg/dL <200 [facility] Comment on above: <200 mg/dL Desirable 200-240 mg/dL Borderline >240 mg/dL High Risk Glucose [Mass/Vol] 103 mg/dL 74-106 [facility] Comment on above: Fasting Glucose resu lt from 100 to 125 mg/dL suggests IMPAIRED HOMEOSTASIS per A.D.A. criteria. Potassium [Moles/Vol] 3.8 mmol/L 3.5-5.1 [facility] Protein [Mass/Vol] 7.0 g/dL 6.4-8.2 [facility] Sodium [Moles/Vol] 140 mmol/L 136-145 [facility] Triglyceride [Mass/Vol] 168 mg/dL <199 [facility] Comment on above: The drugs N-Acetylcy steine and Metamizole may falsely depress this assay.Serum Triglycerides Reference Interval Normal <150 mg/dL Borderline high 150 - 199 mg/dL High 200 - 499 mg/dL Very High > or = 500 mg/dL Laboratory - Chemistry and C hemistry - challengeOrdered By: Jenifer Rawls on 04-23-2022 ALP [Catalytic activity/Vol] 75 U/L 45-117 [facility] ALT [Catalytic activity/Vol] 21 U/L 13-56 [facility] CO2 [Moles/Vol] 29.0 mmol/L 21.0-32.0 [facility] Globulin (S) [Mass/Vol] 3.5 g/dL 2.2-4.2 [facility] Urea nitrogen/Creatinine [Mass ratio] 22.1 mg/mg 10-20 [facility] No Panel InformationOrdered By: Jenifer Rawls on 04-23-2022 Estimated GFR (MDRD) Amer 80 mL/min >60 [facility] Comment on above: GFR Calc Estimated GFR (MDRD) Non-Af Amer 66 mL/min >60 [facility] Comment on above: Non- GFR Calc Serum or plasma albumin deondre urement (mass/volume)Ordered By: Jenifer Rawls on 04-23-2022 Albumin [Mass/Vol] 3.5 g/dL 3.2-5.0 [facility] Serum or plasma albumin/glob ulin mass ratioOrdered By: Jenifer Rawls on 04-23-2022 Albumin/Globulin [Mass ratio] 1.0 {ratio} 0.9-2.4 [facility] Serum or plasma calcium deondre urement (mass/volume)Ordered By: Jenifer Rawls on 04-23-2022 Calcium [Mass/Vol] 9.3 mg/dL 8.5-10.1 [facility] Serum or plasma cholesterol in HDL measurement (mass/volume)Ordered By: Jenifer Rawls on 04-23-2022 Cholesterol in HDL [Mass/Vol] 52 mg/dL >40 [facility] Comment on above: The drugs N-Acetylcy steine and Metamizole may falsely depress this assay. Reference Range HDL <40 mg/dL Low HDL Cholesterol HDL >or= 60 mg/dL High HDL Cholesterol Serum or plasma cholesterol in VLDL measurement (mass/volume)Ordered By: Jenifer Rawls on 04-23-2022 Cholesterol in VLDL [Mass/Vol] 34 mg/dL 5-40 [facility] Serum or plasma creatinine m easurement (mass/volume)Ordered By: Jenifer Rawls on 04-23-2022 Creatinine [Mass/Vol] 0.90 mg/dL 0.55-1.02 [facility] Comment on above: The validity of the calculated GFR & GFRAA in patients over 70 years has not been determined. Clinical correlation is essential. Serum or plasma low density lipoprotein (LDL) cholesterol measurement (mass/volume)Ordered By: Jenifer Rawls on 04-23-2022 Cholesterol in LDL [Mass/Vol] 143 mg/dL 0-130 [facility] Serum or plasma urea nitroge n measurement (mass/volume)Ordered By: Jenifer Rawls on 04-23-2022 Urea nitrogen [Mass/Vol] 20 mg/dL 7-18 [facility] Thin prep Papanicolaou smear with manual screeningOrdered By: Jenifer Rawls on 04-23-2022 Thin prep Papanicolaou smear with manual screening 15 U/L 15-37 [facility] Thin prep Papanicolaou smear with manual screening 4 5-15 [facility] EMERGENCY REPORTon 2 EMERGENCY REPORT [facility] EMERGENCY ROOM REPORT NAME ACCOUNT SEX AGE ADMIT DISCHARGE PT MED. RECORD# NUMBER DATE DATE TYPE YULIANA LOCK [id number] F 65 04/03/21 04/03/21 3 [id number] ROOM: ER DATE OF : 1955 DICTATING PHYSICIAN: Kaushik Woods HISTORY OF PRESENT ILLNESS: The patient is a 65-year-old female who presents with concern for dizziness. The patient states that this morning a friend dropped off a peanut butter pie, and she sat down to eat a small piece. She states that she finished it and stood up and felt very dizzy. She checked her blood pressure, which was significantly elevated. The patient describes the dizziness as presyncopal in nature. He denies any vertiginous feeling. He denies any vision change, headache, neck pain, chest pain, or shortness of breath. He denies any nausea or vomiting, abdominal pain, or urinary symptoms. She states she has been on her same blood pressure medication for some time. She currently does not have a primary care physician. She took her medication this morning. PAST MEDICAL HISTORY: Hypertension. PAST SURGICAL HISTORY: Noncontributory. SOCIAL HISTORY: She lives at home with her . She denies any drugs or alcohol abuse. REVIEW OF SYSTEMS: Ten systems reviewed and otherwise negative unless stated above. PHYSICAL EXAMINATION: GENERAL: The patient appears well and nontoxic. HEENT: Head: Normocephalic. NECK: Trachea is midline. Supple. Mouth: Buccal mucosa appears well-hydrated. Eyes: PERRLA. Equal ocular motions are intact. LUNGS: Clear to auscultation . No wheezing or rhonchi. HEART: S1, S2 appreciated without murmurs. Pulses equal in the bilateral upper and lower extremity. ABDOMEN: Soft and nontender. No rebound or guarding. MUSCULOSKELETAL: +5/5 muscle strength in the upper and lower extremities. NEUROLOGIC: Alert and oriented x3. Cranial nerves II-XII are intact. No evidence of ataxia. No focal deficit. SKIN: Clear. PSYCHIATRIC: Mood and affect normal. DIAGNOSTIC DATA: No abnormal laboratory work. Urine shows no evidence of infection. CT brain is negative. EKG is nonischemic. EMERGENCY DEPARTMENT COURSE AND TREATMENT: The patient appears well Page 1 of 2 [facility] LOCK Emergency Room Report YULIANA LOCK : 1955 and nontoxic. No focal deficit. Blood pressure is elevated, which was spontaneously reduced throughout her stay. CT brain was negative. No electrolyte abnormality. EKG and troponin showed no evidence of acute ischemia. Unclear of the cause of the patient's dizziness, but it could be related to her elevated blood pressure. The patient and her have been going through a lot of stress secondary to building a new home. The patient also suffers from insomnia and sleeps only a few hours a night intermittently. The patient also drinks a large amount of caffeine, at least 4 to 5 cups each morning. All of these reasons could be for the patient's presyncope. I see no emergent reason to keep the patient in the hospital at this time. DIAGNOSES: 1. Dizziness. 2. Hypertension exacerbation. PLAN/DISPOSITION: She will be given primary care physician followup with a local physician given they are moving to the area. She was asked to return for new or worsening symptoms. Advised on keeping a blood pressure log. The patient and agreeable and discharged home in stable condition. Dictated By: Kaushik Woods DO 04/03/21 16:06 JOB #: [id number] Transcribed By: am 04/03/21 18:53 Electronically signed by: E-SIGN: Kaushik Woods D.O. 04/06/21 10:34 Page 2 of 2 YULIANA LOCK Emergency Room Report Normal [facility] CBC + DIFFon 02-17-2022 Baso # 0.00 x10EE3/UL Normal 0.00 - 0.10 [facility] Comment on above: Performed By: #### 2 14483 #### [facility],[address] [place] [address] Basophils/100 WBC (Bld) 0.6 % Normal 0.0 - 2.0 [facility] Comment on above: Performed By: #### 2 96190 #### [facility],[address] [place] [address] CBC + DIFF Normal [facility] Comment on above: Result Comment: CBC- COMPLETE BLOOD COUNT Performed By: #### 2 67417 #### [facility],[address] [place] [address] EO # 0.10 x10EE3/UL Normal 0.00 - 0.50 [facility] Comment on above: Performed By: #### 2 37675 #### [facility],[address] [place] [address] Eosinophils/100 WBC (Bld) 0.8 % Normal 0.0 - 7.0 [facility] Comment on above: Performed By: #### 2 09811 #### [facility],[address] [place] [address] Erythrocyte distribution width (RBC) [Ratio] 13.1 % Normal 12.0 - 15.6 [facility] Comment on above: Performed By: #### 2 05490 #### [facility],[address] [place] [address] Hematocrit (Bld) [Volume fraction] 42.5 % Normal 34.0 - 46.0 [facility] Comment on above: Performed By: #### 2 49833 #### [facility],[address] [place], [place] [address] Hemoglobin (Bld) [Mass/Vol] 14.4 g/dL Normal 12.0 - 16.0 [facility] Comment on above: Performed By: #### 2 14680 #### [facility],[address] [place] [address] Lymph # 0.90 x10EE3/UL Normal 0.80 - 2.80 [facility] Comment on above: Performed By: #### 2 22174 #### [facility],[address] [place] [address] Lymphocytes/100 WBC (Bld) 11.7 % Low 20.0 - 45.0 [facility] Comment on above: Performed By: #### 2 25379 #### [facility],[address] [place] [address] MANUAL DIFF N/A Normal [facility] Comment on above: Performed By: #### 2 21233 #### [facility],[address] [place] [address] MCH (RBC) [Entitic mass] 31 pg Normal 27 - 33 [facility] Comment on above: Performed By: #### 2 39678 #### [facility],[address] [place] [address] MCHC 34 X10 3 Normal 32 - 36 [facility] Comment on above: Performed By: #### 2 25794 #### [facility],[address] [place], [place] [address] MCV (RBC) [Entitic vol] 93 fL Normal 80 - 99 [facility] Comment on above: Performed By: #### 2 83395 #### [facility],[address] [place] [address] [place] # 0.40 x10EE3/UL Normal 0.20 - 1.00 [facility] Comment on above: Performed By: #### 2 08364 #### [facility],[address] [place] [address] 69461 MONOS % 4.9 % Normal 0.0 - 10.0 [facility] Comment on above: Performed By: #### 2 42183 #### [facility],[address] [place] [address]113 Morphology Addi (Bld) [Interp] N/A Normal [facility] Comment on above: Result Comment: {CD] Performed By: #### 2 75481 #### [facility],[address] [place] [address]238 Neut # 6.10 x10EE3/UL Normal 1.50 - 7.10 [facility] Comment on above: Performed By: #### 2 26296 #### [facility],[address] [place] [address] 23813 Neutrophils/100 WBC (Bld) 82.0 % High 46.0 - 76.0 [facility] Comment on above: Performed By: #### 2 75291 #### [facility],[address] [place] [address] 30579 PLATELET 323 x10EE3/UL Normal 150 - 450 [facility] Comment on above: Performed By: #### 2 91922 #### [facility],[address] [place] [address] 94907 Platelet mean volume (Bld) [Entitic vol] 8.3 fL Normal 6.6 - 10.5 [facility] Comment on above: Result Comment: AUTO MATED DIFFERENTIAL Performed By: #### 2 51738 #### [facility],[address] [place] [address] 11210 RBC 4.59 x 10EE6/UL Normal 4.10 - 5.[address] [facility] Comment on above: Performed By: #### 2 37274 #### [facility],[address] [place] [address]759 WBC 7.4 x 10EE3/UL Normal 4.5 - 10.8 [facility] Comment on above: Performed By: #### 2 20513 #### [facility],[address] [place] [address] 31543 CMP with eGFRon 04-03-2021 AGE 65 years Normal [facility] Comment on above: Performed By: #### 2 66357 #### [facility],[address] [place] [address] 58595 Albumin [Mass/Vol] 3.6 g/dL Normal 3.4 - 5.0 [facility] Comment on above: Performed By: #### 2 82889 #### [facility],[address] [place] [address] 87929 Albumin/Globulin [Mass ratio] 1.0 {ratio} Normal 0.9 - 1.6 [facility] Comment on above: Performed By: #### 2 19802 #### [facility],[address] [place] [address] 09659 ALK PHOS 85 U/L Normal 46 - 116 [facility] Comment on above: Performed By: #### 2 21449 #### [facility],[address] [place] [address] 58084 ALT [Catalytic activity/Vol] 34 U/L Normal 14 - 59 [facility] Comment on above: Performed By: #### 2 21736 #### [facility],[address] [place] [address] 88741 Anion gap [Moles/Vol] 13 mmol/L Normal 10 - 20 [facility] Comment on above: Performed By: #### 2 15658 #### [facility],[address] [place] [address] 93719 AST [Catalytic activity/Vol] 23 U/L Normal 13 - 39 [facility] Comment on above: Performed By: #### 2 51623 #### [facility],[address] [place] [address]111 B/C RATIO 19 ratio Normal 0 - 30 [facility] Comment on above: Performed By: #### 2 22360 #### [facility],[address] [place] [address] 94177 Bilirubin [Mass/Vol] 0.4 mg/dL Normal 0.2 - 1.0 [facility] Comment on above: Performed By: #### 2 19719 #### [facility],[address] [place] [address] 81812 Calcium [Mass/Vol] 8.8 mg/dL Normal 8.5 - 10.1 [facility] Comment on above: Performed By: #### 2 57856 #### [facility],[address] [place] [address] 05966 Chloride [Moles/Vol] 102 mmol/L Normal 98 - 107 [facility] Comment on above: Performed By: #### 2 96226 #### [facility],[address] [place] [address] 59628 CMP with eGFR Normal [facility] Comment on above: Result Comment: COMP REHENSIVE METABOLIC PANEL Performed By: #### 2 83615 #### [facility],[address] [place] [address] 52884 CO2 [Moles/Vol] 26.7 mmol/L Normal 21.0 - 32.0 [facility] Comment on above: Performed By: #### 2 88461 #### [facility],[address] [place] [address] 25196 Creatinine [Mass/Vol] 0.91 mg/dL Normal 0.55 - 1.02 [facility] Comment on above: Performed By: #### 2 75042 #### [facility],[address] [place] [address] 34157 GFR/1.73 sq M.predicted among non-blacks MDRD (S/P/Bld) [Vol rate/Area] mL/min/{1.73_m2} Normal 60 - 999 [facility] Comment on above: Performed By: #### 2 98986 #### [facility],[address] [place] [address] 5[address]30 Result Comment: ACCO RDING TO THE NATIONAL KIDNEY DISEASE EDUCATION PROGRAM(NKDE), A NORMAL eGFR IS A VALUE GREATER THAN OR EQUAL TO 60 ML/MIN/1.73 SQ METERS. CHRONIC KIDNEY DISEASE: <60mL/MIN/1.73 SQ METERS KIDNEY FAILURE: <15mL/MIN/1.73 SQ METERS THIS TEST SHOULD ONLY BE USED FOR PATIENTS 18 YEARS OF AGE AND OLDER. Globulin (S) [Mass/Vol] 3.6 g/dL Normal 1.5 - 3.8 [facility] Comment on above: Performed By: #### 2 76668 #### [address] [address] Glucose [Mass/Vol] 113 mg/dL High 74 - 106 [facility] Comment on above: Performed By: #### 2 47284 #### [address] [address] Potassium [Moles/Vol] 3.8 mmol/L Normal 3.5 - 5.1 [facility] Comment on above: Performed By: #### 2 44405 #### [address] [address] Protein [Mass/Vol] 7.2 g/dL Normal 6.4 - 8.2 [facility] Comment on above: Performed By: #### 2 98060 #### [address] [address] Sodium [Moles/Vol] 138 mmol/L Normal 136 - 145 [facility] Comment on above: Performed By: #### 2 65475 #### [address] [address] Urea nitrogen [Mass/Vol] 17 mg/dL Normal 7 - 18 [facility] Comment on above: Performed By: #### 2 62088 #### [address] [address] [address] BRAIN W/O CONTRASTon 03-18 CT BRAIN W/O CONTRAST [place] [address] Patient: YULIANA LOCK Phone#: : 1955 Age: 65 Gender: F Pt. Type: ER Account: [id number] Location: 052 Ordering: KAUSHIK WOODS Exam Date: 04/03/2021/13:38 Family Phys: Charge Code: [id number] Physician: Barbour Order #: [id number] DLP Dose#: [id number] PROCEDURE: CT BRAIN WITHOUT CONTRAST COMPARISON: None. INDICATIONS: Dizziness. TECHNIQUE: CT images were obtained without contrast material. All CT scans at this facility use dose modulation, iterative reconstruction, and/or weight based dosing when appropriate to reduce radiation dose to as low as reasonably achievable. IV CONTRAST: No IV contrast used,0ml TOTAL DOSE: 52.30 CTDIvol(mGy) FINDINGS: CEREBRUM: No edema, hemorrhage, mass, or inappropriate atrophy. CEREBELLUM: No edema, hemorrhage, mass, or inappropriate atrophy. BRAINSTEM: No edema, hemorrhage, mass, or inappropriate atrophy. CSF SPACES: Ventricles, cisterns, and sulci are appropriate for age. No hydrocephalus, subarachnoid hemorrhage, or mass. SKULL: No mass or other significant visible lesion. SINUSES: Limited views demonstrate no significant mucosal thickening or fluid. ORBITS: Limited views are unremarkable. OTHER: Atherosclerotic calcifications of the cavernous carotid arteries. CONCLUSION: 1. No appreciable acute intracranial abnormality. Note: An acute ischemic event may not be initially evident on radiograph. Dictated by: Leyda Borjas MD on 04/03/2021 at 13:56 Continued Report - Page 2 of 2 Patient: YULIANA LOCK Phone#: : 1955 Age: 65 Gender: F Pt. Type: ER Account: [id number] Location: 052 Ordering: KAUSHIK WOODS Exam Date: 04/03/2021/13:38 Family Phys: Charge Code: [id number] Physician: Barbour Order #: [id number] DLP Dose#: [id number] Approved by: Leyda Borjas MD on 04/03/2021 at 14:03 Normal [facility] TROPONIN I, HIGH SENSITIVITY on 04-03-2021 HS TROPONIN 6.1 pg/mL Normal 0.0 - 51.4 [facility] Comment on above: Performed By: #### 2 41846 #### [facility],[address] [place] [address],[facility] [address] URINALYSISon 04-03-2021 Amorphous NONE Normal [facility] Comment on above: Performed By: #### 2 09049 #### [facility],[address] [place] [address]56[address] Bacteria NONE Normal [facility] Comment on above: Performed By: #### 2 32611 #### [facility],[address] [place] [address] 10211 Bilirubin Ql (U) Negative Normal NORMAL: NEGATIVE [facility] Comment on above: Performed By: #### 2 [id number] #### [facility],[address] [place] [address] 95535 Casts NONE Normal [facility] Comment on above: Performed By: #### 2 83081 #### [facility],[address] [place] [address] 55195 Clarity (U) clear Normal NORMAL: CLEAR [facility] Comment on above: Performed By: #### 2 18487 #### [facility],[address] [place] [address] 80048 Color (U) p.yel Normal NORMAL: YELLOW [facility] Comment on above: Performed By: #### 2 47817 #### [facility],[address] [place] [address] 27689 Crystals LM Nom (Urine sed) NONE Normal [facility] Comment on above: Performed By: #### 2 17795 #### [facility],[address] [place] [address] 60257 Epi Cells NONE Normal [facility] Comment on above: Performed By: #### 2 80124 #### [facility],[address] [place] [address] 74122 Glucose Ql (U) NORM Normal NORMAL: NORMAL [facility] Comment on above: Performed By: #### 2 41902 #### [facility],[address] [place] [address] 62205 Hemoglobin Ql (U) Negative Normal NORMAL: NEGATIVE [facility] Comment on above: Performed By: #### 2 03397 #### [facility],[address] [place] [address] 04205 Ketone Negative Normal NORMAL: NEGATIVE [facility] Comment on above: Performed By: #### 2 43658 #### [facility],[address] [place] [address] 36561 Leukocytes 25 Abnormal NORMAL: NEGATIVE [facility] Comment on above: Performed By: #### 2 46152 #### [facility],[address] [place] [address] 39561 Mucous NONE Normal [facility] Comment on above: Performed By: #### 2 48094 #### [facility],[address] [place] [address] 57815 Nitrite Ql (U) Negative Normal NORMAL: NEGATIVE [facility] Comment on above: Performed By: #### 2 49652 #### [facility],[address] [place] [address] 66319 pH (U) 6.5 [pH] Normal NORMAL: 5.0-8.0 [facility] Comment on above: Performed By: #### 2 22799 #### [facility],[address] [place] [address] 25917 Protein Ql (U) Negative Normal NORMAL: NEGATIVE [facility] Comment on above: Performed By: #### 2 40660 #### [facility],[address] [place] [address] 78025 Rbc NONE Normal 0-3/hpf [facility] Comment on above: Performed By: #### 2 46920 #### [facility],[address] [place] [address] 68518 Sp [place] 1.005 Low NORMAL: 1.010-1.030 [facility] Comment on above: Performed By: #### 2 92594 #### [facility],[address] [place] [address] Specimen Type UNSPECIFIED Normal [facility] Comment on above: Performed By: #### 2 82342 #### [facility],[address] [place] [address] Urinalysis dipstick W Reflex Microscopic panel (U) SEE BELOW Normal [facility] Comment on above: Result Comment: MICR OSCOPIC Performed By: #### 2 18388 #### [facility],[address] [place] [address] Urobilinog NORM Normal NORMAL: NORMAL [facility] Comment on above: Performed By: #### 2 25210 #### [facility],[address] [place] [address] Wbc RARE Normal 0-5/hpf [facility] Comment on above: Performed By: #### 2 15137 #### [facility],[address] [place] [address] Yeast NONE Normal [facility] Comment on above: Performed By: #### 2 70040 #### [facility],[address] [place] [address] EMERGENCY REPORTon 1 EMERGENCY REPORT [facility] EMERGENCY ROOM REPORT NAME ACCOUNT SEX AGE ADMIT DISCHARGE PT MED. RECORD# NUMBER DATE DATE TYPE YULIANA LOCK [id number] F 64 04/21/20 04/21/20 3 [id number] ROOM: ER DATE OF : 1955 DICTATING PHYSICIAN: Kaushik Woods HISTORY OF PRESENT ILLNESS: This is a 64-year-old female with a past medical history of hypertension who presents with a rash to the neck for the past few days. She states that she did start a new lotion approximately one week ago. She states that the rash is pruritic in nature and does have some burning to it. She states that it was a little bit painful to touch. She denies any fever or chills. She denies any difficulty swallowing. PAST MEDICAL HISTORY: Hypertension. PAST SURGICAL HISTORY: None. SOCIAL HISTORY: She denies any drugs or alcohol. She denies any tobacco abuse. REVIEW OF SYSTEMS: Ten systems were reviewed and otherwise negative unless stated above. PHYSICAL EXAMINATION: The patient appears well and nontoxic. Vital signs are within normal limits. Head: Normocephalic without signs of trauma. Eyes: Extraocular motions are intact, PERRLA. Mouth: Buccal mucosa appears well hydrated. No intraoral lesions. Neck: Full range of motion. No signs of meningitis. Lungs: Clear. Heart: S1 and S2 appreciated without murmur. Abdomen: Soft and nontender. Musculoskeletal: Muscle strength is +5/5 in the upper and lower extremities. Neurologic: Alert and oriented. Skin: Evidence of an erythematous rash to the anterior neck with small, clear, fluid-filled vesicles. No crepitus. Psychiatric: Mood and affect are normal. EMERGENCY DEPARTMENT COURSE AND TREATMENT: The patient appears well and nontoxic. She will be given Benadryl for home as well as prednisone in the Emergency Department and for home. Concern for possible superimposed fungal dermatitis. The patient will be given ketoconazole cream. She was asked to follow up with her primary care within 48 hours for a wound check. She was asked to return for new or worsening symptoms. The patient was agreeable and discharged home in stable condition. DIAGNOSIS: Rash. Page 1 of 2 YULIANA LOCK Emergency Room Report YULIANA LOCK : 1955 Dictated By: Kaushik Woods DO 04/21/20 17:53 JOB #: [id number] Transcribed By: ricardo 04/22/20 09:26 Electronically signed by: E-SIGN: Kaushik Woods D.O. 05/01/20 09:11 Page 2 of 2 YULIANA LOCK Emergency Room Report Normal [facility] Vital Signs Date Time Vital Sign Value Performing Clinician Faci lity 05-09-2024 15:28-0400 Body temperature 98 [degF] Veronica Tobar MD Work Phone: [facility] 05-09-2024 15:28-0400 Diastolic blood pressure 80 mm[Hg] Veronica Tobar MD Work Phone: [facility] 05-09-2024 15:28-0400 Heart rate 69 /min Veronica Tobar MD Work Phone: [facility] 05-09-2024 15:28-0400 Respiratory rate 16 /min Veronica Tobar MD Work Phone: [facility] 05-09-2024 15:28-0400 SaO2% (BldA) [Mass fraction] 95 % Veronica Tobar MD Work Phone: [facility] 05-09-2024 15:28-0400 Systolic blood pressure 151 mm[Hg] Veronica Tobar MD Work Phone: [facility] 05-09-2024 12:01-0400 Body height 157.48 cm Veronica Tobar MD Work Phone: [facility] 05-09-2024 12:01-0400 Body mass index (BMI) [Ratio] 37 kg/m2 Veronica Tobar MD Work Phone: [facility] 05-09-2024 12:01-0400 Body weight 92 kg Veronica Tobar MD Work Phone: [facility] 04-04-2024 13:59-0500 Body height 157.5 cm Tirso Vargas APRN.CNM Work Phone: [facility] 04-04-2024 13:59-0500 Body mass index (BMI) [Ratio] 38.23 kg/m2 Tirso Vargas APRN.CNM Work Phone: [facility] 04-04-2024 13:59-0500 Body weight 94.8 kg Tirso Vargas APRN.CNM Work Phone: [facility] 04-04-2024 13:59-0500 Diastolic blood pressure 80 mm[Hg] Tirso Vargas APRN.CNM Work Phone: [facility] 04-04-2024 13:59-0500 Systolic blood pressure 128 mm[Hg] Tirso Vargas APRN.CNM Work Phone: [facility] Encounters Encounter Date Encounter Type Care Provider Facility Start: 05-09-2024 ambulatory Veronica Tobar Facility:[facility] Start: 05-09-2024 End: 05-09-2024 Emergency department patient visit Mark Ma Facility:[facility] Start: 04-13-2024 End: 04-13-2024 ambulatory Veronica Tobar MD Work Phone: [facility] Work Phone: Start: 04-13-2024 End: 04-13-[address] Veronica Tobar MD -[facility] Start: 04-13-2024 End: 04-13-2024 ambulatory Veronica Tobar Facility:[facility] Start: 04-04-2024 End: 04-04-2024 Patient encounter procedure Tirso Vargas APRN.CNM Work Phone: OB/Gynecology Comment on above: Encounter for gyneco logical examination with abnormal finding (Primary Dx); Encounter for screening for human papillomavirus (HPV); Pap smear for cervical cancer screening; Encounter for screening mammogram for breast cancer; Dense breast tissue; Family history of breast cancer; Cystocele, midline; Vaginal atrophy Start: 04-04-2024 End: 04-04-2024 Patient encounter status Tirso Vargas APRN.CNM Work Phone: [facility] Start: 04-04-2024 End: 04-04-2024 ambulatory TIRSO VARGAS Facility:[facility] Start: 04-04-2024 Encounter for gynecological examination (general) (routine) with abnormal findings TIRSO VARGAS [facility] Start: 09-30-2023 End: 09-30-2023 ambulatory [facility] Facility:[facility] Start: 03-08-2023 End: 03-08-2023 ambulatory [facility] Work Phone: Start: 03-08-2023 End: 03-08-2023 Patient encounter procedure [facility]-Mikala Lozano, [facility] Work Phone: Start: 04-23-2022 End: 04-23-2022 ambulatory [facility] Work Phone: Start: 04-23-2022 End: 04-23-2022 Patient encounter procedure [facility] Start: 04-03-2021 End: 04-03-2021 Emergency department patient visit KAUSHIK Nelli CHUCK [facility] Start: 04-21-2020 End: 04-21-2020 Emergency department patient visit KAUSHIK WOODS [facility] Procedures Date Procedure Procedure Detail Performing Clinician Start: 05-09-2024 CT angiography of ch est with contrast Veronica Tobar MD Work Phone: Start: 05-09-2024 Plain chest X-ray Abdon Tobar MD Work Phone: Start: 04-04-2024 Cytp c/v auto thin l yr prepj scr mnl rescr phys Tirso Vargas APRN.CNM Work Phone: Start: 04-04-2024 HIGH RISK HUMAN JUAN LLOMA VIRUS (HPV), PCR FOR DETECTION AND GENOTYPING Tirso Vargas APRN.CNM Work Phone: Start: 03-08-2023 Computed tomography of abdomen and pelvis with contrast Start: 04-03-2021 Urinalysis KAUSHIK BARRETO Comment on above: Result Comment: URIN ALYSIS Performed By: #### 2 [id number] #### [facility],[address] [address] Start: 12-26-2007 Colonoscopy Tirso brown APRN.CNAbril Work Phone: Plan of Treatment Date Care Activity Detail Author Start: 2029 RSV Vaccine (1 - 1-d ose 75+ series) RSV Vaccine (1 - 1-dose 75+ series) [facility] Start: 05-09-2024 End: 05-09-2024 [facility] Start: 05-09-2024 [facility] Start: 04-14-2024 Screening for malign ant neoplasm of colon [facility] Start: 02-16-2024 Advance Directive Discussion Advance Directive Discussion [facility] Start: 10-17-2023 Covid-19 Vaccine ( season) Covid-19 Vaccine ( season) [facility] Start: 10-17-2023 Influenza vaccination Influenza Vacc ine (#1) [facility] Start: 11-13-2019 Screening for osteoporosis Bone Density Screening [facility] Start: 12-25-2008 Screening for malign ant neoplasm of colon Colonoscopy [facility] Start: 2004 Pneumococcal Vaccine : 50+ (1 of 1 - PCV) Pneumococcal Vaccine: 50+ (1 of 1 - PCV) [facility] Start: 2004 Shingrix Vaccine (1 of 2) Shingrix Vaccine (1 of 2) [facility] Start: 11-13-1999 Diabetes Screening Diabetes Screenin g [facility] Start: 11-13-1999 Lipid panel Lipid Screening [facility] Start: 11-13-1999 Screening for malign ant neoplasm of colon [facility] Start: 1994 Screening for malign ant neoplasm of breast Mammogram Screening [facility] Start: 1973 Urine microalbumin profile DTaP,Tdap,Td Vaccine (1 - Tdap) [facility] Start: 1972 Anxiety Screening Anxiety Screening [facility] Start: 1972 Depression Screening Depression Scre ening [facility] Start: 1972 Hepatitis C screening Hepatitis C Sc [facility] End: 05-04-2025 DBT Breast - bilateral screening GEOVANI SCREENING W [facility] Radiology Routine Encounter for gynecological examination with abnormal finding Encounter for screening mammogram for breast cancer Dense breast tissue 1 Occurrences starting 04/04/2024 until 05/04/2025 [facility] Work Phone: Comment on above: 1 Occurrences starti ng 04/04/2024 until 05/04/2025 Patient Education Dehydration [facility] Work Phone: Patient referral [facility] Work Phone: Urine culture [facility] Payers Date Payer Category Payer Self-pay [id number] 2023 Private Health Insurance [facility] [id number] 2023 Unknown [id number] 2019 Medicare MEDICARE [id number] 2019 Medicare [id number] 2010 Unknown VLAD [id number] 1955 Unknown [id number] 1955 Unknown [id number] Medicare [id number] Unknown [id number] Unknown [id number] Unknown [id number] Unknown [id number] Social History Date Type Detail Facility Start: 04-05-2021 End: 04-06-2021 Tobacco smoking status NHIS Unknown if ever smoked [facility] Start: 08-01-2015 Non-smoker [facility] Start: 1955 Sex Assigned At Female [facility] Start: 04-04-2024 End: 05-09-2024 Tobacco smoking status NHIS Never smoked tobacco [facility] Start: 04-04-2024 Tobacco use and exposure Smokeless tobacco non-user [facility] Start: 04-04-2024 Alcoholic beverage intake Ex-drinker (finding) [facility] Start: 04-04-2024 History of Social function [facility] Start: 04-04-2024 Tobacco use panel [facility] National Score (1-10 0), lower number is lower risk [address] [facility] Start: 1955 Sex assigned at Not on file [facility] Start: 04-26-2024 End: 05-09-2024 Sex Female (finding) [facility] Mental Status Date Assessment Result Facility 05-09-2024 Cognitive function Level Of Cons ciousness Awake;Alert;Appropriate;Follow s Commands [facility] Work Phone: Radiology Diagnostic study note 05-09-2024 Note Date & Type Note Facility 05-09-2024 Radiology Diagnostic study note [facility] Imaging Services [address] [place] [address] [id number] CTA Chest W/WO Contrast MR#: [id number] Acct: [id number] Name: YULIANA LOCK Rep #: [id number] : 1955 F 68 From: Keke Godoy MD PCP: Dr. Veronica Tobar MD Status: REG ER Study:CTA Chest W/WO Contrast Date of Exam: 05/09/24 Exam# [id number] Ordering Dr: Nelli Ma DO EXAM: CT Angiography Chest Without and With Intravenous Contrast CLINICAL INDICATION: PULMONARY EMBOLISM TECHNIQUE: Axial computed tomographic angiography images of the chest without and with intravenous contrast. This CT exam was performed using one or more of the following dose reduction techniques: automated exposure control, adjustment of the mA and/or kV according to patient size, and/or use of iterative reconstruction technique. MIP reconstructed images were created and reviewed. COMPARISON: No relevant prior studies available. FINDINGS: LIMITATIONS: Suboptimal opacification of the pulmonary arteries. PULMONARY ARTERIES: No pulmonary embolism is identified. Some of the distal pulmonary arteries cannot be evaluated due to suboptimal opacification. AORTA: No acute findings. No thoracic aortic aneurysm. LUNGS AND PLEURAL SPACES: Bilateral apical scarring. Lung emphysema/COPD. 3 mm ground-glass nodule of the right upper lobe. Scattered 4 mm ground-glass nodule of the right lower lobe. No consolidation. No significant effusion. No pneumothorax. HEART: Unremarkable. No cardiomegaly. No significant pericardial effusion. No evidence of RV dysfunction. MEDIASTINUM: Scattered mediastinal lymph nodes some of which are upper limits of normal in size and are most likely reactive lymph nodes. BONES/JOINTS: No acute fracture. No dislocation. SOFT TISSUES: Unremarkable. LYMPH NODES: See above. CT/CTA Chest W/WO Contrast IMPRESSION: 1. No pulmonary embolism is identified. Some of the distal pulmonary arteries cannot be evaluated due to suboptimal opacification. 2. Scattered mediastinal lymph nodes some of which are upper limits of normal in size and are most likely reactive lymph nodes. 3. Ground-glass nodular opacity of the right lung could be secondary to infectious or inflammatory process. Repeat CT in 3-6 months is recommended. Reading Location: [facility] CC: Dr. Veronica Tobar MD; Dr. Mark Ma DO ~ Door Manager: Signed [facility] Radiology Diagnostic study note 05-09-2024 Note Date & Type Note Facility 05-09-2024 Radiology Diagnostic study note [facility] Imaging Services [address] [place], [place] [address] Chest 1 View (Portable) MR#: [id number] Acct: [id number] Name: YULIANA LOCK Rep #: [id number] : 1955 F 68 From: Keke Godoy MD PCP: Dr. Veronica Tobar MD Status: REG ER Study:Chest 1 View (Portable) Date of Exam: 05/09/24 Exam# [id number] Ordering Dr: Nelli Ma DO EXAM: XR Chest, 1 View CLINICAL INDICATION: DYSPNEA TECHNIQUE: Frontal view of the chest. COMPARISON: No relevant prior studies available. FINDINGS: LUNGS AND PLEURAL SPACES: Pulmonary venous congestion. No consolidation. No pneumothorax. HEART: Unremarkable. No cardiomegaly. MEDIASTINUM: Unremarkable. Normal mediastinal contour. BONES/JOINTS: Unremarkable. No acute fracture. RAD/Chest 1 View (Portable) IMPRESSION: Pulmonary venous congestion. Reading Location: [facility] CC: Dr. Veronica Tobar MD; Dr. Mark Ma DO ~ Door Manager: Signed [facility] Progress note 04-04-2024 Note Date & Type Note Facility 04-04-2024 Note HNO ID: [id number] Author: TIRSO VARGAS APRN.CNM Service: ? Author Type: Die Drawing Checker Type: Progress Notes Filed: 04/11/2024 12:00 Note Text: Yuliana is a 68 year old who presents for an annual gynecologic exam. Feeling like there is something down there Soreness, no pain but uncomfortable. Has felt this since 11/08. Postmenopausal: Yes since 2011 HRT use: No. Still get period: No Menopause symptoms: None for 26 years, not sexually active in last 10 years. had prostate cancer. control frequency: Never HPV vaccine: Unsure; Last pap smear: 09/16/2015 History of abnormal pap: No, all prior PAP smears have been normal Bothersome pelvic pain: No Last mammogram: 2023 normal (gets them at [facility]) History of abnormal mammogram: No - just dense Colonoscopy 2007 DEXA done but uncertain of date. 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 History Comments: Sexual Activity: Not Currently; No partner data on record Contraception: None PAST MEDICAL HISTORY Diagnosis Date Abdominal pain, unspecified site Abdominal pain, unspecified site Diarrhea Diarrhea Essential hypertension, benign External hemorrhoids without mention of complication Internal hemorrhoids without mention of complication Lumbago Obesity, unspecified Unspecified disorder of thyroid Unspecified symptom associated with female genital organs PAST SURGICAL HISTORY Procedure Laterality Date COLONOSCOPY W/BIOPSY SINGLE/MULTIPLE 12/26/07 PAST SURGICAL HISTORY OF breast lump removed benign FAMILY HISTORY Problem Relation Age of Onset Alzheimer's Disease Father Breast Cancer Paternal Grandmother 53 Breast Cancer Daughter SOCIAL HISTORY Social History Tobacco Use Smoking status: Never Smokeless tobacco: Never Substance Use Topics Alcohol use: Not Currently Drug use: Never REVIEW OF SYSTEMS Abdomen: No abdominal pain, nausea, vomiting, diarrhea, or constipation. No bloating, early satiety, indigestion, or increased flatulence. Bladder: No dysuria, gross hematuria, urinary frequency, urinary urgency, or incontinence Breast: No breast lumps, nipple d/c, overlying skin changes, redness or skin retraction Allergies and current medication updated:Yes SENSITIVE EXAM: The sensitive examination was discussed with the Patient or Patient's Authorized Speech Coach. As applicable, any other physician, advance practice provider, medical student, or other health professional student that will be observing or involved in the sensitive examination for educational or training purposes was discussed with the Patient or Authorized Speech Coach. The Patient or Authorized Speech Coach has agreed to proceed with the sensitive examination. (Sensitive examination includes inspection and/or palpation of the breasts, pelvis, prostate and anorectal regions). EXAM: BP 128/80 Ht 5' 2 (1.58m) Wt 209 lb (94.8kg) LMP 02/15/1998 BMI 38.22 kg/(m2). GENERAL: pleasant, female in no apparent distress HEENT: Normocephalic, atraumatic, mucus membranes moist, and no lesions NECK: Supple, full range of motion, no adenopathy, and thyroid normal DERMATOLOGY: Normal, without lesions, non-icteric, and non-hirsute BREAST: soft, non-tender, symmetric, no dominant mass, normal nipple-areolar complex, no lymphadenopathy, and no nipple discharge CHEST: Normal inspiratory effort ABDOMEN: soft, non-tender, and no masses PELVIC: external genitalia normal, normal Bartholin's glands, urethra, Chula's glands, no vulvar lesions, no cervical lesions, good vaginal support, physiologic discharge present, normal appearing perineal body and perianal region. BIMANUAL: uterus normal size, shape and consistency, no adnexal masses, and non-tender RECTOVAGINAL: deferred. NEURO: alert and oriented x3,exam grossly non-focal EXTREMITIES: normal ASSESSMENT/PLAN: 1. Encounter for gynecological examination with abnormal finding - ICD9: V72.31, ICD10: Z01.411 (primary diagnosis) - Completed pelvic and breast exam - Encouraged monthly BSE - Follow up for annual exam in one year. - GEOVANI SCREENING W CHRISTO - PAP TEST - HIGH RISK HUMAN PAPILLOMA VIRUS (HPV), PCR FOR DETECTION AND GENOTYPING 2. Encounter for screening for human papillomavirus (HPV) - ICD9: V73.81, ICD10: Z11.51 - PAP TEST - HIGH RISK HUMAN PAPILLOMA VIRUS (HPV), PCR FOR DETECTION AND GENOTYPING 3. Pap smear for cervical cancer screening - ICD9: V76.2, ICD10: Z12.4 - Completed pelvic and breast exam - Encouraged monthly BSE - Follow up for annual exam in one year. - PAP TEST - HIGH RISK HUMAN PAPILLOMA VIRUS (HPV), PCR FOR DETECTION AND GENOTYPING 4. Encounter for screening mammogram for breast cancer - ICD9: V76.12, IC (more content not included)... [facility] History of Present illness Narrative 04-04-2024 Tirso Vargas APRN.[facility] - 04/04/2024 1:41 PM EST Note Date & Type Note Facility 04-04-2024 History of Presen t illness Narrative Yuliana is a 68 year old who presents for an annual gynecologic exam. Feeling like there is something down there Soreness, no pain but uncomfortable. Has felt this since 11/08. Postmenopausal: Yes since 2011 HRT use: No. Still get period: No Menopause symptoms: None for 26 years, not sexually active in last 10 years. had prostate cancer. control frequency: Never HPV vaccine: Unsure; Last pap smear: 09/16/2015 History of abnormal pap: No, all prior PAP smears have been normal Bothersome pelvic pain: No Last mammogram: 2023 normal (gets them at [facility]) History of abnormal mammogram: No - just dense Colonoscopy 2007 DEXA done but uncertain of date. 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 History Comments: Sexual Activity: Not Currently; No partner data on record Contraception: None PAST MEDICAL HISTORY Diagnosis Date Abdominal pain, unspecified site Abdominal pain, unspecified site Diarrhea Diarrhea Essential hypertension, benign External hemorrhoids without mention of complication Internal hemorrhoids without mention of complication Lumbago Obesity, unspecified Unspecified disorder of thyroid Unspecified symptom associated with female genital organs PAST SURGICAL HISTORY Procedure Laterality Date COLONOSCOPY W/BIOPSY SINGLE/MULTIPLE 12/26/07 PAST SURGICAL HISTORY OF breast lump removed benign FAMILY HISTORY Problem Relation Age of Onset Alzheimer's Disease Father Breast Cancer Paternal Grandmother 53 Breast Cancer Daughter SOCIAL HISTORY Social History Tobacco Use Smoking status: Never Smokeless tobacco: Never Substance Use Topics Alcohol use: Not Currently Drug use: Never REVIEW OF SYSTEMS Abdomen: No abdominal pain, nausea, vomiting, diarrhea, or constipation. No bloating, early satiety, indigestion, or increased flatulence. Bladder: No dysuria, gross hematuria, urinary frequency, urinary urgency, or incontinence Breast: No breast lumps, nipple d/c, overlying skin changes, redness or skin retraction Allergies and current medication updated:Yes SENSITIVE EXAM: The sensitive examination was discussed with the Patient or Patient's Authorized Speech Coach. As applicable, any other physician, advance practice provider, medical student, or other health professional student that will be observing or involved in the sensitive examination for educational or training purposes was discussed with the Patient or Authorized Speech Coach. The Patient or Authorized Speech Coach has agreed to proceed with the sensitive examination. (Sensitive examination includes inspection and/or palpation of the breasts, pelvis, prostate and anorectal regions). EXAM: BP 128/80 Ht 5' 2 (1.58m) Wt 209 lb (94.8kg) LMP 02/15/1998 BMI 38.22 kg/(m^2). GENERAL: pleasant, female in no apparent distress HEENT: Normocephalic, atraumatic, mucus membranes moist, and no lesions NECK: Supple, full range of motion, no adenopathy, and thyroid normal DERMATOLOGY: Normal, without lesions, non-icteric, and non-hirsute BREAST: soft, non-tender, symmetric, no dominant mass, normal nipple-areolar complex, no lymphadenopathy, and no nipple discharge CHEST: Normal inspiratory effort ABDOMEN: soft, non-tender, and no masses PELVIC: external genitalia normal, normal Bartholin's glands, urethra, Chula's glands, no vulvar lesions, no cervical lesions, good vaginal support, physiologic discharge present, normal appearing perineal body and perianal region. BIMANUAL: uterus normal size, shape and consistency, no adnexal masses, and non-tender RECTOVAGINAL: deferred. NEURO: alert and oriented x3,exam grossly non-focal EXTREMITIES: normal ASSESSMENT/PLAN: 1. Encounter for gynecological examination with abnormal finding - ICD9: V72.31, ICD10: Z01.411 (primary diagnosis) - Completed pelvic and breast exam - Encouraged monthly BSE - Follow up for annual exam in one year. - GEOVANI SCREENING W CHRISTO - PAP TEST - HIGH RISK HUMAN PAPILLOMA VIRUS (HPV), PCR FOR DETECTION AND GENOTYPING 2. Encounter for screening for human papillomavirus (HPV) - ICD9: V73.81, ICD10: Z11.51 - PAP TEST - HIGH RISK HUMAN PAPILLOMA VIRUS (HPV), PCR FOR DETECTION AND GENOTYPING 3. Pap smear for cervical cancer screening - ICD9: V76.2, ICD10: Z12.4 - Completed pelvic and breast exam - Encouraged monthly BSE - Follow up for annual exam in one year. - PAP TEST - HIGH RISK HUMAN PAPILLOMA VIRUS (HPV), PCR FOR DETECTION AND GENOTYPING 4. Encounter for screening mammogram for breast cancer - ICD9: V76.12, ICD10: Z12.31 - Completed pelvic and breast exam - Encouraged monthly BSE - Follow up for annual exam in one year. - GEOVANI SCREENING W CHRISTO 5. Dense breast tissue - ICD9: 793.82, ICD10: R92.30 - GEOVANI SCREENING W CHRISTO - Discussed follow up screening likely to be recommended and will reach out after results 6. Family history of breast cancer - ICD9: V16.3, ICD10: Z80.3 -Offered genetic testing, declines at this time 7. Cystocele, midline - ICD9: 618.01, ICD10: N81.11 -Mild and not protruding. Reviewed kegels at this time and pelvic floor therapy if she desires. 8. Vaginal atrophy - ICD9: 627.3, ICD10: N95.2 -Will start vaginal estrogen and think this will help with the soreness she is experiencing. Reviewed r/b/a and how to use. 1) Health maintenance: Pap done with reflex HPV Mammogram ordered Nutrition, exercise and routine health maintenance exams reviewed. Calcium/Vitamin D supplementation information provided. Colon cancer screening: patient to discuss with PCP TSH/lipids/glucose: followed by PCP Vitamin D: followed by PCP BMD: followed by PCP 2) Follow up one year or sooner as needed Tirso Vargas APRN.CNM documented in this encounter [facility] Evaluation note Note Date & Type Note Facility Evaluation note No assessment information availa tiffany [facility] Work Phone: Evaluation note Note Date & Type Note Facility Evaluation note Diagnosis Encounter for gynecological examination with abnormal finding- Primary Routine gynecological examination Encounter for screening for human papillomavirus (HPV) Special screening examination for human papillomavirus (HPV) Pap smear for cervical cancer screening Screening for malignant neoplasm of the cervix Encounter for screening mammogram for breast cancer Dense breast tissue Family history of breast cancer Family history of malignant neoplasm of breast Cystocele, midline Vaginal atrophy Postmenopausal atrophic vaginitis documented in this encounter [facility] Discharge instructions Note Date & Type Note Facility Hospital Discharge instructions Additional Instructions You may try some Afrin nasal spray but please do not use it longer than 3 to 4 days. Also this may increase your blood pressure temporarily. Do try to eat some protein and drink plenty of fluids to stay hydrated [facility] Work Phone: Reason for referral (narrative) Note Date & Type Note Facility Reason for referral (narrative) No reason for referral information available [facility] Work Phone: Summary Purpose Family History Relationship Condition Age at Onset Recorded Date/T miky Unknown Family History?- Unknown August 01, 2015 6:55pm Family History?Cancer Unknown July 162015 6:55pm Relationship Condition Age at Onset Recorded Date/T miky Unknown Family History?- Unknown August 01, 2015 5:55pm Family History?Cancer Unknown July 162015 5:55pm Advance Directives Advance Directive Response Recorded Date/ Time Advance Directives No July 13 6 9:35pm Living Will No April 06 12:51am Power of Lottery Clerk No April 06, 2021 12:51am Advance Directive Response Recorded Date/ Time Advance Directives No July 13 6 8:35pm Living Will No April 05 11:51pm Power of Lottery Clerk No April 05, 2021 11:51pm Advance Directive Response Recorded Date/ Time Advance Directives No July 13 9:35pm Advance Directive Response Recorded Date/ Time Living Will No May 09, 2024 12:05pm Do you have a Healthcare Power of Lottery Clerk? No May 09, 2024 12:05pm Advance Directives No July 13 9:35pm Chief Complaint and Reason for Visit Chief Complaint EORDER Chief Complaint RLQ ABD PAIN Chief Complaint Admit Date weakness May 09, 2024 12: 00pm Additional Source Comments INFORMATION SOURCE (unrecogn ized section and content) DATE CREATED AUTHOR 04/06/2021 Jonas Burrell [facility] DATE CREATED AUTHOR AUTHOR'S ORGANIZ ATION 04/13/2024 [facility] DATE CREATED AUTHOR AUTHOR'S ORGANIZ ATION 05/14/2024 [facility] Care Teams (unrecognized sec tion and content) Team Status: Active Member Role Status Dates Dr. Shan Madrigal MD Family Provider Active Jenifer Rawls , DO Primary Care Provider Active Team Status: Inactive Member Role Status Dates Jenifer Rawls , DO Primary Care Provi anmol, Attending Provider, Referring Provider Active Team Status: Inactive Member Role Status Dates eJnifer Rawls , Primary Care Provider Active Ivonne Chang NP-C Attending Provider, Referring Pr ovider Active Team Status: Active Member Role Status Dates Veronica Tobar MD Primary Care Provider Active Team Status: Inactive Member Role Status Dates Veronica Tobar MD Primary Care Provider Active St art: April 13, 2024 End: April 13, 2024 Veronica Tobar MD Attending Provider Active Start : April 13, 2024 End: April 13, 2024 Veronica Tobar MD Referring Provider Active Start : April 13, 2024 End: April 13, 2024 Team Status: Inactive Member Role Status Dates Veronica Tobar MD Primary Care Provider Active St art: May 09, 2024 End: May 09, 2024 Dr. Mark Ma , Emergency Provider Active Start: May 09, 2024 End: May 09, 2024 Goals (unrecognized section and content) Goals may be documented in a n alternate sectionGoals may be documented in an alternate sectionGoals may be documented in an alternate sectionGoals may be documented in an alternate section Source Comments (unrecognize d section and content) In the event this informatio n is protected by the Federal Confidentiality of Alcohol and Drug Abuse Patient Records regulations: The Federal rules restrict any use of the information to criminally investigate or prosecute any alcohol or drug abuse patient.[facility] Reason for Visit (unrecogniz ed section and content) Reason Comments [facility] FOR RECORDS PERTAINING TO PATIENTS WHO ARE [...] BE BASED ON THE PRIMARY CLINICAL RECORDS. [employer] [facility]. provides no warranty or guarantee of the accuracy or completeness of information in this document.
[2024-09-22 17:50] LABS: Hematocrit 43.5 % (37-47); Hemoglobin 14.2 g/dL (12.0-15.0); Mean Corp Hgb Conc 32.6 g/dL (32-36); Mean Corpuscular Volume 94.2 fL (81-99); Mean Platelet Vol. 10.5 fl (6.2-12.0); Platelet Count 350 K/mm3 (150-450); RBC Distribution Width CV 12.2 % (11.6-14.6); RBC Distribution Width SD 42.3 fl (35.1-43.9); Red Blood Count 4.62 M/mm3 (4.2-5.4); White Blood Count 6.9 K/mm3 (4.4-11.0)
[2024-09-22 18:49] LABS: AST(SGOT) 22 U/L (<=31); Alanine Aminotransfer ALT/SGPT 19 U/L (<=34); Albumin, Serum 4.2 g/dL (3.4-4.8); Alkaline Phosphatase 91 U/L (35-104); Anion Gap 13 (5-15); BUN 20 mg/dL (4-19); BUN/Creat Ratio 23.1 RATIO (10-20); Calcium,Total 9.9 mg/dL (7.6-11.0); Carbon Dioxide 25.1 mmol/L (21.0-32.0); Chloride 103 mmol/L (98-108); Cholesterol 222 mg/dL (<=200); Globulin 2.9 g/dL (2.2-4.2); Glucose 81 mg/dL (70-99); Low Density Lipoprotein Calc. 132 mg/dL; Potassium 4.0 mmol/L (3.3-5.1); Triglycerides 162 mg/dL; Very Low Density Lipoprotein 32 mg/dL (5-40); cholesterol:hdl ratio screen 3.88
== END | disposition home or self-care (01) ==
LOC: MFPLAB 15:35
PROVIDERS: PCP Family Medicine; Referring Provider Family Medicine; Visit Provider Family Medicine
DX: I10 Essential (primary) hypertension (principal); F41.9 Anxiety disorder, unspecified
CPT/HCPCS: 36415; 80053; 80061; 84443; 85027

== ENCOUNTER → 2024-10-10 | Outpatient (CLI) | payer MEDICARE, OTHER, SELFPAY ==
--- NOTE | 2024-10-10 14:28 | BI_ITS ---
EXAM: SCRN MAMM (CAD)W/CHRISTO BILAT DATE: 10/10/2024 CLINICAL HISTORY: F, Age 68 y/o , BREAST SCREENING Sister with breast cancer. Daughter with breast cancer. Grandmother with breast cancer. Remote right stereotactic breast biopsy. TECHNIQUE: SCRN MAMM (CAD)W/CHRISTO BILAT COMPARISON: Prior exam(s) dated April 10, 2021.. FINDINGS: TISSUE DENSITY: The breasts are heterogeneously dense, which may obscure small masses. Bilateral Breast Mammographic Findings: No significant masses, calcifications or other abnormalities are identified. No suspicious masses, areas of developing architectural distortion, or suspicious calcifications. There has been no significant interval change. BI/SCRN MAMM (CAD)W/CHRISTO BILAT IMPRESSION: Stable examination. OVERALL FINAL ASSESSMENT BI-RADS 1: NEGATIVE. RECOMMENDATION: Routine annual follow-up in 1 Year A letter with findings and recommendations will be mailed to the patient. Reading Location: [place]
== END | disposition home or self-care (01) ==
LOC: OPBI 14:27
PROVIDERS: PCP Family Medicine; Referring Provider Family Medicine; Visit Provider Family Medicine
DX: Z12.31 Encounter for screening mammogram for malignant neoplasm of breast (principal)
CPT/HCPCS: 77063; 77067